=== PATIENT | female | born 1955 | race Caucasian/White ===

== ENCOUNTER 2019-10-07 09:20 | Emergency (ER) | payer OTHER ==
--- NOTE | 2019-10-07 10:17 | ER ---
Nurse's Notes [facility] Name: Olga Yang Age: 63 yrs Sex: Female : 1955 Arrival Date: 10/07/2019 Time: 09:23 Bed 8 Private MD: Diagnosis: Allergic contact dermatitis due to plants, except food Presentation: 10/07 09:34 Transition of care: patient was not received from another setting of care. Risk tw2 Assessment: Do you want to hurt yourself or someone else? Patient reports no desire to harm self or others. Initial Sepsis Screen: Does the patient meet any 2 criteria? No. Patient's initial sepsis screen is negative. Does the patient have a suspected source of infection? No. Patient's initial sepsis screen is negative. Care prior to arrival: None. 09:34 Method Of Arrival: Ambulatory tw2 09:34 Presenting complaint: Patient states: "I got poison jessenia in my eyes yesterday". Pt c/o aa5 itching and irritation to eyes. 09:34 Onset of symptoms was September 2019. aa5 09:34 Acuity: ADOLFO 4 aa5 Triage Assessment: 10:00 General: Appears uncomfortable, Behavior is calm, cooperative. Pain: Denies pain. EENT: vc Eyes are tearing on right inner canthus and left inner canthus Lid(s) are swollen surrounding bilateral eyes.. Reports blurred vision in bilateral eyes. since yesterday. Patient states she has poison jessenia in her eyes from cutting up a tree yesterday.. Neuro: Level of Consciousness is awake, alert, obeys commands, Oriented to person, place, time. Cardiovascular: Denies shortness of breath. Respiratory: Airway is patent Respiratory effort is even, unlabored. GI: No signs and/or symptoms were reported involving the gastrointestinal system. : No deficits noted. Derm: Rash noted that is itchy, red, raised, on surrounding bilateral eyes. Musculoskeletal: Range of motion: intact in all extremities. Historical: - Allergies: 09:39 No Known Allergies; aa5 - Home Meds: 09:39 None [Active]; aa5 - PMHx: 09:39 Hypertension; aa5 - PSHx: 09:39 Hysterectomy; Lymph node removed; Hernia repair; Tonsillectomy; aa5 - Immunization history:: Flu vaccine is not up to date. - Social history:: Smoking status: Patient/guardian denies using tobacco. - Ebola Screening: : Patient denies travel to an Ebola-affected area in the 21 days before illness onset. Screenin:33 Abuse screen: Denies threats or abuse. Nutritional screening: No deficits noted. tw2 Tuberculosis screening: No symptoms or risk factors identified. Fall Risk None identified. Assessment: 10:11 General: Appears uncomfortable. Pain: Denies pain. Neuro: Level of Consciousness is vc awake, alert, obeys commands, Oriented to person, place, time. Cardiovascular: Capillary refill < 3 seconds Patient's skin is warm and dry. Respiratory: Airway is patent Respiratory effort is even, unlabored, Denies shortness of breath. GI: No deficits noted. : No signs and/or symptoms were reported regarding the genitourinary system. EENT: Eyes are tearing on left inner canthus and right inner canthus Lid(s) are swollen around bilateral eyes.. Reports blurred vision Denies pain. Derm: Skin is intact, is healthy with good turgor, Skin is Rash noted that is itchy, surrounding both eyes. Musculoskeletal: Capillary refill < 3 seconds, Range of motion: intact in all extremities. 10:20 Reassessment: Patient is alert, oriented x 3, equal unlabored respirations, skin ph warm/dry/pink. Patient denies pain at this time. Patient states symptoms have not improved. Vital Signs: 09:34 BP 172 / 74; Pulse 52; Resp 17; Pulse Ox 100% on R/A; tw2 09:34 Weight 72.57 kg (R); Height 5 ft. 1 in. (154.94 cm) (R); Pain 0/10; aa5 10:24 BP 164 / 73; Pulse 54; Resp 17; Pulse Ox 97% on R/A; tw2 09:34 Body Mass Index 30.23 (72.57 kg, 154.94 cm) aa5 ED Course: 09:23 Patient arrived in ED. rg4 09:33 Dayan Griffith, TENZIN is Primary Nurse. tw2 09:34 Arm band placed on. tw2 09:34 Bed in low position. Call light in reach. tw2 09:38 Triage completed. aa5 09:40 Roszak, Paulino, PA is PHCP. jr8 09:40 Gil Veliz MD is Attending Physician. jr8 09:42 Sonali Amaya, RN is Primary Nurse. vc 10:28 No provider procedures requiring assistance completed. Patient did not have IV access ph during this emergency room visit. Administered Medications: 10:20 Drug: SOLU-Medrol 125 mg Route: IM; Site: left vastus lateralis; ph 10:30 Follow up: Response: No adverse reaction ph Outcome: 10:15 Discharge ordered by . jr8 10:28 Discharged to home ambulatory. ph 10:28 Condition: good 10:28 Discharge instructions given to patient, Instructed on discharge instructions, follow up and referral plans. medication usage, Demonstrated understanding of instructions, follow-up care, medications, Prescriptions given X 1. 10:31 Patient left the ED. ph Signatures: Francesca Serrano RN RN aa5 Paulino Osorio PA PA jr8 Ophelia Redd RN RN Dayan Griffith RN RN 2 Raysa Paredes 4 Sonali Amaya, TENZIN RN vc Corrections: (The following items were deleted from the chart) : 09:33 Social history: Smoking status: 2 aa5 09:40 09:33 Immunization history: Adult Immunizations [facility] aa5
--- NOTE | 2019-10-07 10:17 | EDPHYS ---
Physician Documentation [facility] Name: Olga Yang Age: 63 yrs Sex: Female : 1955 Arrival Date: 10/07/2019 Time: 09:23 Bed 8 Private MD: ED Physician Gil Veliz HPI: 10/07 10:12 This 63 yrs old Female presents to ER via Ambulatory with complaints of Eye jr8 Swelling. 10:12 Onset: The symptoms/episode began/occurred acutely, yesterday. Duration: the symptoms jr8 are continuous. Aggravated by nothing. Alleviated by nothing. Associated signs and symptoms: Pertinent positives: None. Patient does not utilize any form of vision correction. Severity of symptoms: At their worst the symptoms were mild in the emergency department the symptoms are unchanged. The patient has not experienced similar symptoms in the past. The patient has not recently seen a physician. Patient stated that she was doing yard work and was getting rid of poison sophie. Stated that she took proper precautions but now has rash around both eyes with itching. Rash also to both wrists . Historical: - Allergies: 09:39 No Known Allergies; aa5 - Home Meds: 09:39 None [Active]; aa5 - PMHx: 09:39 Hypertension; aa5 - PSHx: 09:39 Hysterectomy; Lymph node removed; Hernia repair; Tonsillectomy; aa5 - Immunization history:: Flu vaccine is not up to date. - Social history:: Smoking status: Patient/guardian denies using tobacco. - Ebola Screening: : Patient denies travel to an Ebola-affected area in the 21 days before illness onset. ROS: 10:12 Constitutional: Negative for fever, chills, and weight loss. jr8 10:12 Skin: Positive for rash. 10:12 All other systems are negative. Exam: 10:12 Visual Acuity: Visual acuity is within normal limits. jr8 10:12 Eyes: Pupils equal round and reactive to light, extra-ocular motions intact. Lids and lashes normal. Conjunctiva and sclera are non-icteric and not injected. Cornea within normal limits. Periorbital areas with no swelling, redness, or edema. ENT: Nares patent. No nasal discharge, no septal abnormalities noted. Tympanic membranes are normal and external auditory canals are clear. Oropharynx with no redness, swelling, or masses, exudates, or evidence of obstruction, uvula midline. Mucous membranes moist. Neck: Trachea midline, no thyromegaly or masses palpated, and no cervical lymphadenopathy. Supple, full range of motion without nuchal rigidity, or vertebral point tenderness. No Meningismus. Cardiovascular: Regular rate and rhythm with a normal S1 and S2. No gallops, murmurs, or rubs. Normal PMI, no JVD. No pulse deficits. Respiratory: Lungs have equal breath sounds bilaterally, clear to auscultation and percussion. No rales, rhonchi or wheezes noted. No increased work of breathing, no retractions or nasal flaring. Abdomen/GI: Soft, non-tender, with normal bowel sounds. No distension or tympany. No guarding or rebound. No evidence of tenderness throughout. Back: No spinal tenderness. No costovertebral tenderness. Full range of motion. MS/ Extremity: Pulses equal, no cyanosis. Neurovascular intact. Full, normal range of motion. Neuro: Awake and alert, GCS 15, oriented to person, place, time, and situation. Cranial nerves II-XII grossly intact. Motor strength 5/5 in all extremities. Sensory grossly intact. Cerebellar exam normal. Normal gait. 10:12 Skin: mild erythema and swelling around the periorbital areas without scleral or conjunctival infiltration. Same mild rash noted to wrists bilaterally. No other lesions or acute findings noted . Vital Signs: 09:34 BP 172 / 74; Pulse 52; Resp 17; Pulse Ox 100% on R/A; tw2 09:34 Weight 72.57 kg (R); Height 5 ft. 1 in. (154.94 cm) (R); Pain 0/10; aa5 10:24 BP 164 / 73; Pulse 54; Resp 17; Pulse Ox 97% on R/A; tw2 09:34 Body Mass Index 30.23 (72.57 kg, 154.94 cm) aa5 MDM: 09:41 Patient medically screened. jr8 10:12 Data reviewed: vital signs, nurses notes, and as a result, I will discharge patient. jr8 Data interpreted: Pulse oximetry: on room air is 100 %. Interpretation: normal. Counseling: I had a detailed discussion with the patient and/or guardian regarding: the historical points, exam findings, and any diagnostic results supporting the discharge/admit diagnosis, the need for outpatient follow up, a family practitioner, to return to the emergency department if symptoms worsen or persist or if there are any questions or concerns that arise at home. Administered Medications: 10:20 Drug: SOLU-Medrol 125 mg Route: IM; Site: left vastus lateralis; ph 10:30 Follow up: Response: No adverse reaction ph Disposition: 11:43 Co-signature as Attending Physician, Gil Veliz MD I agree with the assessment and kdr plan of care. Disposition: 10/07/19 10:15 Discharged to Home. Impression: Allergic contact dermatitis due to plants, except food. - Condition is Stable. - Discharge Instructions: Poison Sophie Dermatitis. - Prescriptions for Prednisone 20 mg Oral Tablet - take 2 tablets by ORAL route once daily for 5 days then one tab once dialy for 3 days; 13 tablet. - Medication Reconciliation Form, Thank You Letter, Antibiotic Education, Prescription Opioid Use form. - Follow up: Private Physician; When: 5 - 6 days; Reason: Recheck today's complaints, Continuance of care, Re-evaluation by your physician. - Problem is new. - Symptoms have improved. Signatures: Gil Veliz MD MD [facility] Francesca Serrano RN RN aa5 Paulino Osorio PA PA jr8 Ophelia Redd RN RN Dayan Griffith RN RN tw2 Corrections: (The following items were deleted from the chart) 09:40 09:33 Social history: Smoking status: [facility] 09:40 09:33 Immunization history: Adult Immunizations [facility] aa5 10:31 10:15 10/07/2019 10:15 Discharged to Home. Impression: Allergic contact dermatitis due ph to plants, except food. Condition is Stable. Forms are Medication Reconciliation Form, Thank You Letter, Antibiotic Education, Prescription Opioid Use. Follow up: Private Physician; When: 5 - 6 days; Reason: Recheck today's complaints, Continuance of care, Re-evaluation by your physician. Problem is new. Symptoms have improved. jr8
[2019-10-07] MEDS ORDERED: METHYLPREDNISOLONE 125 MG INJ ONE (10:22)
[2019-10-07 10:37] VITALS: BP 164/73; O2SAT 97
== END 2019-10-07 10:31 | disposition home or self-care (01) ==
LOC: ER 09:20
DX: L23.7 Allergic contact dermatitis due to plants, except food (principal)
CPT/HCPCS: 96372; 99283; J2930

== ENCOUNTER 2020-09-06 13:31 | Emergency (ER) | payer OTHER ==
--- OUTSIDE RECORDS SUMMARY | 2020-09-06 13:32 | XMS REPORT | Continuity of Care Document ---
:1955 Author Organization [facility] t Address [address] [place] [address] Care Team Providers Name Role Phone Unavailable Unavailable Unavailable Problems This patient has no known problems. Allergies, Adverse Reactions, Alerts This patient has no known allergies or adverse reactions. Medications This patient has no known medications. Procedures This patient has no known procedures. Results This patient has no known results.
[2020-09-06 14:19] LABS: Absolute Lymphocytes (CBC) 1.4 K/uL (0.7-4.9); Basophils % 1.2 % (0-1.3); Hematocrit 22.2 % (36.0-45.0); Lymphocytes % 15.3 % (15.3-44.8); MPV 9.4 fL (7.6-11.3); RBC Red Blood Cell Count 2.52 M/uL (3.86-4.86)
[2020-09-06 14:22] LABS: Protime INR 0.89
[2020-09-06] MEDS ORDERED: ONDANSETRON 4 MG/2 ML VIAL ONE (14:33)
[2020-09-06 14:35] LABS: ALT/SGPT 17 U/L (12-78); AST/SGOT 12 U/L (15-37); Albumin 3.1 g/dL (3.4-5.0); Alkaline Phosphatase 97 U/L (45-117); BUN Blood Urea Nitrogen 11 mg/dL (7-18); Bicarbonate 25 mmol/L (21-32); Bilirubin Direct 0.1 mg/dL (0-0.2); Bilirubin Total 0.2 mg/dL (0.2-1.0); Ferritin 10.5 ng/mL (8-388); Glucose Level 96 mg/dL (74-106); Magnesium 2.3 mg/dL (1.8-2.4); NT PRO-BNP 57 pg/mL (<125); Potassium 3.6 mmol/L (3.5-5.1); Protein, Total 6.8 g/dL (6.4-8.2); Sodium Level 141 mmol/L (136-145); Transferrin 355 mg/dL (200-360); Troponin (Emerg Dept Use Only) < 0.02 ng/mL (0.0-0.045)
--- NOTE | 2020-09-06 15:09 | RAD REPORT ---
EXAM DESCRIPTION: RAD - Chest Single View - 09/06/2020 2:27 pm CLINICAL HISTORY: SOB Chest pain. COMPARISON: No comparisons FINDINGS: Portable technique limits examination quality. The lungs are grossly clear. The heart is normal in size. No displaced fractures.Probable significant hiatal hernia.
[2020-09-06] MEDS ORDERED: NA CHLORIDE 0.9% 100 ML IV ONE (17:27)
[2020-09-06] MEDS ORDERED: HYDROCORTISONE SUC 100 MG INJ ONE (18:14)
[2020-09-06] MEDS ORDERED: ACETAMINOPHEN 325 MG TABLET ONE (18:14)
[2020-09-06] MEDS ORDERED: DIPHENHYDRAMINE 50 MG/ML VIAL ONE (18:14)
--- NOTE | 2020-09-06 22:42 | EDPHYS ---
Physician Documentation [facility] Name: Olga Yang Age: 64 yrs Sex: Female : 1955 Arrival Date: 09/06/2020 Time: 13:31 Bed 23 Private MD: ED Physician Gerson Gonzalez HPI: 09/06 14:02 This 64 yrs old Female presents to ER via Wheelchair with complaints of pm1 Weakness, Shortness Of Breath, Chest Pain. 14:02 The patient presents to the emergency department with weakness of the entire body, pm1 generalized weakness. Onset: The symptoms/episode began/occurred 3 day(s) ago. Context: Possible due to her anemia. Similar to prior iron deficiency anemia in the past. She used to receive iron infusion treatments when she lived in [place]. Associated signs and symptoms: Pertinent positives: Chest pain, SOB, Pertinent negatives: fever, cough. Severity of symptoms: in the emergency department the symptoms are worse. The patient has experienced similar episodes in the past, a few times. The patient has not recently seen a physician, and does not have an established primary care provider. Historical: - Allergies: 13:38 No Known Allergies; ca1 - Home Meds: 13:38 Iron CR Oral [Active]; ca1 - PMHx: 13:38 Hypertension; ca1 - Immunization history:: Adult Immunizations up to date. - Social history:: Smoking status: Patient reports the use of cigarette tobacco products, denies chronic smoking, but will smoke occasionally, Patient uses alcohol, occasionally. ROS: 14:02 Constitutional: Negative for fever, chills, and weight loss. pm1 14:02 Abdomen/GI: Negative for abdominal pain, nausea, vomiting, diarrhea, and constipation, Back: Negative for injury and pain, MS/Extremity: Negative for injury and deformity, Skin: Negative for injury, rash, and discoloration, Neuro: Negative for headache, numbness, tingling, and seizure, Positive for generalized weakness 14:02 Cardiovascular: Positive for chest pain, Negative for edema, orthopnea, palpitations. 14:02 Respiratory: Positive for cough, shortness of breath, Negative for sputum production, wheezing. Exam: 14:02 Constitutional: This is a well developed, well nourished patient who is awake, alert, pm1 and in no acute distress. Head/Face: Normocephalic, atraumatic. Neck: Trachea midline, no thyromegaly or masses palpated, and no cervical lymphadenopathy. Supple, full range of motion without nuchal rigidity, or vertebral point tenderness. No Meningismus. Chest/axilla: Normal chest wall appearance and motion. Nontender with no deformity. No lesions are appreciated. 14:02 Back: No spinal tenderness. No costovertebral tenderness. Full range of motion. Skin: Warm, dry with normal turgor. Normal color with no rashes, no lesions, and no evidence of cellulitis. MS/ Extremity: Pulses equal, no cyanosis. Neurovascular intact. Full, normal range of motion. 14:02 Cardiovascular: Exam negative for acute changes, Rate: normal, Rhythm: regular, Pulses: no pulse deficits are appreciated. 14:02 Respiratory: Exam negative for acute changes, respiratory distress, shortness of breath. 14:02 Abdomen/GI: Exam negative for acute changes, Inspection: abdomen appears normal, Palpation: abdomen is soft and non-tender. 14:02 Neuro: Exam negative for acute changes, Orientation: is normal, Mentation: is normal, Motor: is normal, moves all fours. Vital Signs: 13:39 BP 137 / 61; Pulse 70; Resp 16; Temp 97.1; Pulse Ox 100% ; ca1 14:34 BP 116 / 51; Pulse 64; Resp 17 S; Pulse Ox 100% on R/A; jd3 16:37 BP 128 / 68; Pulse 66; Resp 16 S; Pulse Ox 97% on R/A; jd3 18:12 BP 140 / 61; Pulse 76; Resp 18 S; Pulse Ox 98% on R/A; jd3 19:14 BP 123 / 55; Pulse 68; Resp 17 S; Pulse Ox 99% on R/A; jd3 21:47 BP 122 / 60; Pulse 71; Resp 17 S; Temp 97.3(TE); Pulse Ox 98% on R/A; jd3 22:26 BP 125 / 58; Pulse 65; Resp 16 S; Temp 98.0(TE); Pulse Ox 100% on R/A; jd3 23:19 BP 118 / 60; Pulse 61; Resp 17 S; Pulse Ox 98% on R/A; jd3 09/07 01:35 BP 127 / 61; Pulse 77; Resp 16 S; Temp 98.2(TE); Pulse Ox 98% ; bb MDM: 09/06 13:44 Patient medically screened. pm1 15:35 Counseling: I had a detailed discussion with the patient and/or guardian regarding: the pm1 historical points, exam findings, and any diagnostic results supporting the discharge/admit diagnosis, lab results, radiology results, The need for blood transfusion and admission to hospital due to symptomatic anemia. The patient does not want to stay in the hospital. She just wants a blood transfusion. Therefore will transfuse blood. 20:13 ED course: Patient feeling a lot better after infusion of 1 unit of blood. She does not pm1 want to stay in the hospital still. Will give the patient the second unit of blood and discharge her. Discussed the need to follow up with hematology for continued management of anemia. 20:44 Data reviewed: vital signs. Data interpreted: Pulse oximetry: on room air is 99 %. pm1 Interpretation: normal. 22:38 ED course: Patient's symptoms that she presented with have completely resolved and she pm1 feels ready to go home. She understands hospital policy for repeat H\T\H two hours after infusion. Pending discharge after results. 09/06 13:53 Order name: Basic Metabolic Panel pm1 09/06 13:53 Order name: CBC with Diff pm1 09/06 13:53 Order name: LFT's pm09/06 13:53 Order name: Magnesium pm09/06 13:53 Order name: NT PRO-BNP pm09/06 13:53 Order name: PT-INR pm09/06 13:53 Order name: Troponin (emerg Dept Use Only) pm1 09/06 13:53 Order name: Ferritin pm09/06 13:53 Order name: TIBC pm09/06 13:53 Order name: Iron Level pm09/06 14:23 Order name: CBC with Automated Diff; Complete Time: 14:25 EDMS 09/06 14:23 Order name: Protime (+INR); Complete Time: 14:25 EDMS 09/06 14:36 Order name: Basic Metabolic Panel; Complete Time: 15:26 EDMS 09/06 14:36 Order name: Liver (Hepatic) Function; Complete Time: 15:26 EDMS 09/06 13:53 Order name: XRAY Chest (1 view) pm1 09/06 14:36 Order name: Troponin (Emerg Dept Use Only); Complete Time: 15:26 EDMS 09/06 14:36 Order name: NT PRO-BNP; Complete Time: 15:26 EDMS 09/06 14:36 Order name: Magnesium; Complete Time: 15:26 EDMS 09/06 14:36 Order name: Transferrin Sat/Iron Binding; Complete Time: 15:26 EDMS 09/06 14:36 Order name: Ferritin; Complete Time: 15:26 EDMS 09/06 15:11 Order name: RAD; Complete Time: 15:26 EDMS 09/06 15:34 Order name: Type And Screen pm1 09/06 15:49 Order name: Bb Add On bd 09/06 16:57 Order name: Packed RBC Leukored EDMS 09/06 17:38 Order name: ABO/RH no charge; Complete Time: 18:27 EDMS 09/07 00:25 Order name: Hemoglobin ar5 09/07 00:25 Order name: Hematocrit ar5 09/06 13:53 Order name: EKG; Complete Time: 13:54 pm1 09/06 13:53 Order name: Cardiac monitoring; Complete Time: 14:20 pm1 09/06 13:53 Order name: EKG - Nurse/Tech; Complete Time: 14:20 pm1 09/06 13:53 Order name: IV Saline Lock; Complete Time: 14:13 pm1 09/06 13:53 Order name: Labs collected and sent; Complete Time: 14:13 pm1 09/06 13:53 Order name: O2 Per Protocol; Complete Time: 14:01 pm1 09/06 13:53 Order name: O2 Sat Monitoring; Complete Time: 14:01 pm1 09/06 15:34 Order name: Transfuse; Complete Time: 18:38 pm1 Administered Medications: 14:33 Drug: Zofran (Ondansetron) 4 mg Route: IVP; Site: right antecubital; jd3 15:30 Follow up: Response: No adverse reaction jd3 18:11 Drug: Tylenol 650 mg Route: PO; jd3 19:00 Follow up: Response: No adverse reaction jd3 18:11 Drug: Benadryl 12.5 mg Route: IVP; Site: left antecubital; jd3 19:00 Follow up: Response: No adverse reaction jd3 18:11 Drug: Solu-CORTEF 50 mg Route: IVP; Site: left antecubital; jd3 19:00 Follow up: Response: No adverse reaction jd3 Disposition: 09/07 11:56 Co-signature as Attending Physician, Gerson Gonzalez MD I agree with the assessment and [facility] plan of care. Disposition: 09/06/20 22:41 Discharged to Home. Impression: Anemia, unspecified. - Condition is Stable. - Discharge Instructions: Anemia, Nonspecific, Blood Transfusion, Adult. - Medication Reconciliation Form, Thank You Letter, Antibiotic Education, Prescription Opioid Use form. - Follow up: Emergency Department; When: As needed; Reason: Worsening of condition. Follow up: Private Physician; When: 2 - 3 days; Reason: Recheck today's complaints, Continuance of care, Re-evaluation by your physician. Follow up: [facility]; When: 2 - 3 days; Reason: Recheck today's complaints, Continuance of care, Re-evaluation by your physician. - Problem is new. - Symptoms have improved. Signatures: Dispatcher [employer] EDMS Gerson Gonzalez MD MD cha Ballard, Brenda RN TENZIN bb Mahesh Small, COMMUNITY SERVICE AIDE COMMUNITY SERVICE AIDE pm1 Babatunde Melgar RN RN jd3 Acob, Cheryl RN TENZIN ca1 Corrections: (The following items were deleted from the chart) 09/06 20:43 14:02 Abdomen/GI: Negative for abdominal pain, nausea, vomiting, diarrhea, and pm1 constipation, Back: Negative for injury and pain, MS/Extremity: Negative for injury and deformity, Skin: Negative for injury, rash, and discoloration, Neuro: Negative for headache, weakness, numbness, tingling, and seizure, pm1 09/07 01:44 09/06 22:41 09/06/2020 22:41 Discharged to Home. Impression: Anemia, unspecified. bb Condition is Stable. Discharge Instructions: Anemia, Nonspecific, Blood Transfusion, Adult. Forms are Medication Reconciliation Form, Thank You Letter, Antibiotic Education, Prescription Opioid Use. Follow up: Emergency Department; When: As needed; Reason: Worsening of condition. Follow up: Private Physician; When: 2 - 3 days; Reason: Recheck today's complaints, Continuance of care, Re-evaluation by your physician. Follow up: Di Powell; When: 2 - 3 days; Reason: Recheck today's complaints, Continuance of care, Re-evaluation by your physician. Problem is new. Symptoms have improved. pm1
--- NOTE | 2020-09-06 22:42 | ER ---
Nurse's Notes [facility] Name: Olga Yang Age: 64 yrs Sex: Female : 1955 Arrival Date: 09/06/2020 Time: 13:31 Bed 23 [facility] MD: Diagnosis: Anemia, unspecified Presentation: 09/06 13:39 Chief complaint: Patient states: GENERALIZED WEAKNESS, NAUSEA, SOB x3 DAYS, STATES ca1 ORTHOSTATIC VERTIGO. Coronavirus screen: At this time, the client does not indicate any symptoms associated with coronavirus-19. Ebola Screen: No symptoms or risks identified at this time. No acute neurological deficit is noted. Initial Sepsis Screen: Does the patient meet any 2 criteria? No. Patient's initial sepsis screen is negative. Does the patient have a suspected source of infection? No. Patient's initial sepsis screen is negative. Risk Assessment: Do you want to hurt yourself or someone else? Patient reports no desire to harm self or others. Note STATES SAME S/S WITH PREVIOUS ANEMIA. Onset of symptoms is unknown. 13:39 Method Of Arrival: Wheelchair ca1 13:39 Acuity: ADOLFO 3 ca1 Historical: - Allergies: 13:38 No Known Allergies; ca1 - Home Meds: 13:38 Iron CR Oral [Active]; ca1 - PMHx: 13:38 Hypertension; ca1 - Immunization history:: Adult Immunizations up to date. - Social history:: Smoking status: Patient reports the use of cigarette tobacco products, denies chronic smoking, but will smoke occasionally, Patient uses alcohol, occasionally. Screenin:00 Abuse screen: Denies threats or abuse. Nutritional screening: No deficits noted. jd3 Tuberculosis screening: No symptoms or risk factors identified. Fall Risk IV access (20 points). Ambulatory Aid- None/Bed Rest/Nurse Assist (0 pts). Gait- Weak (10 pts.). Mental Status- Oriented to own ability (0 pts). Total Moura Fall Scale indicates Low Risk Score (25-44 pts). Fall prevention measures have been instituted. Side Rails Up X 2 Placed close to Nursing Station Frequent Obs/Assesments occuring. Assessment: 14:00 General: Appears in no apparent distress. uncomfortable, Behavior is calm, cooperative, jd3 appropriate for age, Reports fatigue for 2-3 days. Pain: Denies pain. Neuro: Level of Consciousness is awake, alert, obeys commands, Oriented to person, place, time, situation, Reports generalized weakness. Cardiovascular: Denies chest pain, Capillary refill < 3 seconds Patient's skin is warm and dry. Rhythm is regular. Respiratory: Airway is patent Respiratory effort is even, unlabored, Respiratory pattern is regular, symmetrical, Denies cough, shortness of breath. GI: Abdomen is round non-distended, Abd is soft and non tender X 4 quads. Reports nausea. : No signs and/or symptoms were reported regarding the genitourinary system. EENT: No signs and/or symptoms were reported regarding the EENT system. Derm: Skin is intact, Skin is dry, Skin is normal, Skin temperature is warm. Musculoskeletal: Circulation, motion, and sensation intact. Range of motion: intact in all extremities. 15:00 Reassessment: Patient appears in no apparent distress at this time. No changes from jd3 previously documented assessment. Patient and/or family updated on plan of care and expected duration. Pain level reassessed. Patient is alert, oriented x 3, equal unlabored respirations, skin warm/dry/pink. 16:37 Reassessment: Patient appears in no apparent distress at this time. Patient and/or jd3 family updated on plan of care and expected duration. Pain level reassessed. Patient is alert, oriented x 3, equal unlabored respirations, skin warm/dry/pink. awaiting blood transfusion Patient states feeling better. 18:12 Reassessment: Patient appears in no apparent distress at this time. No changes from jd3 previously documented assessment. Patient and/or family updated on plan of care and expected duration. Pain level reassessed. Patient is alert, oriented x 3, equal unlabored respirations, skin warm/dry/pink. 18:20 Reassessment: transfusion started. jd3 19:13 Reassessment: Patient appears in no apparent distress at this time. Patient and/or jd3 family updated on plan of care and expected duration. Pain level reassessed. Patient is alert, oriented x 3, equal unlabored respirations, skin warm/dry/pink. transfusion ongoing. 20:30 Reassessment: Patient appears in no apparent distress at this time. No changes from jd3 previously documented assessment. Patient and/or family updated on plan of care and expected duration. Pain level reassessed. Patient is alert, oriented x 3, equal unlabored respirations, skin warm/dry/pink. 21:46 Reassessment: Patient appears in no apparent distress at this time. Patient and/or jd3 family updated on plan of care and expected duration. Pain level reassessed. Patient is alert, oriented x 3, equal unlabored respirations, skin warm/dry/pink. awaiting second transfusion to finish prior to disposition. Patient states feeling better. 22:26 Reassessment: Patient appears in no apparent distress at this time. Patient and/or jd3 family updated on plan of care and expected duration. Pain level reassessed. Patient is alert, oriented x 3, equal unlabored respirations, skin warm/dry/pink. transfusion complete, awaiting 2 hr post lab draw for disposition. Patient states feeling better. Patient states symptoms have improved. 23:20 Reassessment: Patient appears in no apparent distress at this time. Patient and/or jd3 family updated on plan of care and expected duration. Pain level reassessed. Patient is alert, oriented x 3, equal unlabored respirations, skin warm/dry/pink. pt reports feeling less fatigue. even and steady gait to restroom and back to bed without any signs of fatigue. awaiting 2 hr post blood transfusion lab draw before discharge. Patient states feeling better. Patient states symptoms have improved. 09/07 01:43 Reassessment: Patient is alert, oriented x 3, equal unlabored respirations, skin bb warm/dry/pink. pt states she is feeling much better, verbalized understanding of and agrees to plan of care discharge instructions given pt awaiting arrival of family for transportation home. Vital Signs: 09/06 13:39 BP 137 / 61; Pulse 70; Resp 16; Temp 97.1; Pulse Ox 100% ; ca1 14:34 BP 116 / 51; Pulse 64; Resp 17 S; Pulse Ox 100% on R/A; jd3 16:37 BP 128 / 68; Pulse 66; Resp 16 S; Pulse Ox 97% on R/A; jd3 18:12 BP 140 / 61; Pulse 76; Resp 18 S; Pulse Ox 98% on R/A; jd3 19:14 BP 123 / 55; Pulse 68; Resp 17 S; Pulse Ox 99% on R/A; jd3 21:47 BP 122 / 60; Pulse 71; Resp 17 S; Temp 97.3(TE); Pulse Ox 98% on R/A; jd3 22:26 BP 125 / 58; Pulse 65; Resp 16 S; Temp 98.0(TE); Pulse Ox 100% on R/A; jd3 23:19 BP 118 / 60; Pulse 61; Resp 17 S; Pulse Ox 98% on R/A; jd3 09/07 01:35 BP 127 / 61; Pulse 77; Resp 16 S; Temp 98.2(TE); Pulse Ox 98% ; bb ED Course: 09/06 13:31 Patient arrived in ED. ds1 13:39 Arm band placed on. ca1 13:41 Triage completed. ca1 13:43 Mahesh Small, SARI is PHCP. pm1 13:43 Gesron Gonzalez MD is Attending Physician. pm1 14:01 Babatunde Melgar RN is Primary Nurse. jd3 14:13 Inserted saline lock: 20 gauge in right antecubital area, using aseptic technique. jd3 Blood collected. 15:01 Patient has correct armband on for positive identification. Bed in low position. Call jd3 light in reach. Side rails up X2. fisher terrapin on. Pulse ox on. NIBP on. 16:01 Type And Screen Sent. jd3 22:41 Di Schwartz MD is Referral Physician. pm1 09/07 00:07 Report given to Kala DAVE. jd3 01:44 No provider procedures requiring assistance completed. IV discontinued, intact, bb bleeding controlled, No redness/swelling at site. Pressure dressing applied. Administered Medications: 09/06 14:33 Drug: Zofran (Ondansetron) 4 mg Route: IVP; Site: right antecubital; jd3 15:30 Follow up: Response: No adverse reaction jd3 18:11 Drug: Tylenol 650 mg Route: PO; jd3 19:00 Follow up: Response: No adverse reaction jd3 18:11 Drug: Benadryl 12.5 mg Route: IVP; Site: left antecubital; jd3 19:00 Follow up: Response: No adverse reaction jd3 18:11 Drug: Solu-CORTEF 50 mg Route: IVP; Site: left antecubital; jd3 19:00 Follow up: Response: No adverse reaction jd3 Outcome: 22:41 Discharge ordered by . pm1 09/07 01:44 Discharged to home via wheelchair, with family. bb Condition: stable Discharge instructions given to patient, Instructed on discharge instructions, follow up and referral plans. Demonstrated understanding of instructions, follow-up care. 01:44 Patient left the ED. bb Signatures: Rosalva Mejia ds1 Kala Dhaliwal RN RN bb Mahesh Small, WAREHOUSE PERSON WAREHOUSE PERSON pm1 Babatunde Melgar RN RN jKeila Rivera RN RN ca1 Corrections: (The following items were deleted from the chart) 09/06 15:00 14:00 Reassessment: Patient appears in no apparent distress at this time. No changes jd3 from previously documented assessment. Patient and/or family updated on plan of care and expected duration. Pain level reassessed. Patient is alert, oriented x 3, equal unlabored respirations, skin warm/dry/pink. jd3 18:13 18:12 Pulse 76bpm; Resp 18bpm; Spontaneous; Pulse Ox 98% RA; jd3 jd3 23:21 23:20 Reassessment: Patient appears in no apparent distress at this time. Patient jd3 and/or family updated on plan of care and expected duration. Pain level reassessed. Patient is alert, oriented x 3, equal unlabored respirations, skin warm/dry/pink. pt reports feeling less fatigue. even and steady gait to restroom and back to bed without any signs of fatigue. Patient states feeling better. Patient states symptoms have improved. jd3 23:23 23:22 Response: No adverse reaction jd3 jd3
[2020-09-07 02:40] VITALS: TEMP 98
[2020-09-07 02:41] VITALS: BP 118/60; O2SAT 98
== END 2020-09-07 01:44 | disposition home or self-care (01) ==
LOC: ER 13:31
PROC: 30233N1 Transfusion of Nonautologous Red Blood Cells into Peripheral Vein, Percutaneous Approach (ICD-10-PCS; principal; 2020-09-07)
DX: D64.9 Anemia, unspecified (principal); I10 Essential (primary) hypertension; F17.210 Nicotine dependence, cigarettes, uncomplicated
CPT/HCPCS: 93005; 85025; 80048; 36415; 86900; 83735; 86850; 85610; 86901; 80076; 85018; 85014; 84484; 82728; 83540; 83880; 84466; 71045; 99284; 36430; J1200; P9016 ×2; J1720; J2405

== ENCOUNTER 2020-10-21 16:25 | Observation (INO) | payer OTHER ==
--- OUTSIDE RECORDS SUMMARY | 2020-10-21 16:28 | XMS REPORT | Continuity of Care Document ---
:1955 Author Organization [facility] t Address [address] [place] [address] Dr. Parikh. [address] [place] [id number] Care Team Providers Name Role Phone Unavailable Unavailable Unavailable Problems This patient has no known problems. Allergies, Adverse Reactions, Alerts This patient has no known allergies or adverse reactions. Medications This patient has no known medications. Procedures This patient has no known procedures. Results This patient has no known results.
[2020-10-21 18:33] LABS: Absolute Lymphocytes (CBC) 1.1 K/uL (0.7-4.9); Basophils % 1.6 % (0-1.3); Lymphocytes % 15.5 % (15.3-44.8); MPV 9.1 fL (7.6-11.3); RBC Red Blood Cell Count 3.03 M/uL (3.86-4.86)
[2020-10-21 18:35] LABS: Protime INR 0.94
[2020-10-21 18:50] LABS: BUN Blood Urea Nitrogen 16 mg/dL (7-18); Bicarbonate 26 mmol/L (21-32); Glucose Level 101 mg/dL (74-106); Magnesium 2.4 mg/dL (1.8-2.4); NT PRO-BNP 55 pg/mL (<125); Potassium 3.9 mmol/L (3.5-5.1); Sodium Level 141 mmol/L (136-145); Troponin (Emerg Dept Use Only) < 0.02 ng/mL (0.0-0.045)
--- NOTE | 2020-10-21 18:52 | EDPHYS ---
Physician Documentation [facility] Name: Olga Yang Age: 64 yrs Sex: Female : 1955 Arrival Date: 10/21/2020 Time: 16:28 Bed 6 Private MD: ED Physician Gil Veliz HPI: 10/21 18:12 This 64 yrs old Female presents to ER via Wheelchair with complaints of kdr Dizziness, Ear Pain, Irregular Pulse. 18:12 The patient has been generally weak and SOB with any exertion for the last few weeks. kdr She has a history of anemia for unknown cause. Was seen here in August for similalr s/s and needed a trans fusion at that time for anemia - no cause was reported by the patient. Onset: The symptoms/episode began/occurred gradually, 2 week(s) ago. Severity of symptoms: At their worst the symptoms were mild moderate just prior to arrival, in the emergency department the symptoms are unchanged. The patient has experienced similar episodes in the past, a few times. The patient has not recently seen a physician. The patient was also c/o of pain in the right ear that has been there since August and is unchanged - waxes and wanes. Historical: - Allergies: 16:47 No Known Allergies; em - PMHx: 16:47 Hypertension; Anemia; em - PSHx: 16:47 Hysterectomy; em - Immunization history:: Adult Immunizations up to date. - Social history:: Smoking status: Patient denies any tobacco usage or history of. ROS: 18:52 Constitutional: Negative for fever, chills, and weight loss, Eyes: Negative for injury, kdr pain, redness, and discharge, ENT: Negative for injury, pain, and discharge, Neck: Negative for injury, pain, and swelling, Cardiovascular: Negative for chest pain, palpitations, and edema, Abdomen/GI: Negative for abdominal pain, nausea, vomiting, diarrhea, and constipation, Back: Negative for injury and pain, : Negative for injury, bleeding, discharge, and swelling, MS/Extremity: Negative for injury and deformity, Skin: Negative for injury, rash, and discoloration, Psych: Negative for depression, anxiety, suicide ideation, homicidal ideation, and hallucinations, Allergy/Immunology: Negative for hives, rash, and allergies, Endocrine: Negative for neck swelling, polydipsia, polyuria, polyphagia, and marked weight changes, Hematologic/Lymphatic: Negative for swollen nodes, abnormal bleeding, and unusual bruising. 18:52 Respiratory: Positive for dyspnea on exertion, shortness of breath, Negative for hemoptysis, orthopnea, pleurisy, wheezing. 18:52 Neuro: Positive for weakness, Negative for altered mental status, dizziness, gait disturbance, headache, hearing loss, loss of consciousness, seizure activity, speech changes, syncope. Exam: 18:52 Constitutional: This is a well developed, well nourished patient who is awake, alert, kdr and in no acute distress. Head/Face: Normocephalic, atraumatic. Eyes: Pupils equal round and reactive to light, extra-ocular motions intact. Lids and lashes normal. Conjunctiva and sclera are non-icteric and not injected. Cornea within normal limits. Periorbital areas with no swelling, redness, or edema. Neck: Trachea midline, no thyromegaly or masses palpated, and no cervical lymphadenopathy. Supple, full range of motion without nuchal rigidity, or vertebral point tenderness. No Meningismus. Chest/axilla: Normal chest wall appearance and motion. Nontender with no deformity. No lesions are appreciated. Cardiovascular: Regular rate and rhythm with a normal S1 and S2. No gallops, murmurs, or rubs. Normal PMI, no JVD. No pulse deficits. Respiratory: Lungs have equal breath sounds bilaterally, clear to auscultation and percussion. No rales, rhonchi or wheezes noted. No increased work of breathing, no retractions or nasal flaring. Abdomen/GI: Soft, non-tender, with normal bowel sounds. No distension or tympany. No guarding or rebound. No evidence of tenderness throughout. Back: No spinal tenderness. No costovertebral tenderness. Full range of motion. Skin: Warm, dry with normal turgor. Normal color with no rashes, no lesions, and no evidence of cellulitis. MS/ Extremity: Pulses equal, no cyanosis. Neurovascular intact. Full, normal range of motion. Neuro: Awake and alert, GCS 15, oriented to person, place, time, and situation. Cranial nerves II-XII grossly intact. Motor strength 5/5 in all extremities. Sensory grossly intact. Cerebellar exam normal. Normal gait. Psych: Awake, alert, with orientation to person, place and time. Behavior, mood, and affect are within normal limits. 18:52 Abdomen/GI: Rectal exam: the exam is deferred, The patient is taking an Iron supplement. 19:24 ECG was reviewed by the Attending Physician. kdr Vital Signs: 16:42 BP 127 / 67; Pulse 77; Resp 18; Temp 97.8; Pulse Ox 100% on R/A; Weight 68.04 kg; em Height 5 ft. 1 in. (154.94 cm); Pain 0/10; 18:15 BP 140 / 64; Pulse 66; Resp 16; Pulse Ox 100% ; sv 18:46 BP 136 / 56; Pulse 66; Resp 16; Pulse Ox 100% ; sv 19:35 BP 128 / 66; Pulse 71; Resp 18; Temp 99.5(O); Pulse Ox 100% on R/A; lp1 20:45 BP 135 / 69; Pulse 68; Resp 18; Pulse Ox 98% on R/A; lp1 21:30 BP 132 / 58; Pulse 72; Resp 18; Pulse Ox 97% on R/A; lp1 16:42 Body Mass Index 28.34 (68.04 kg, 154.94 cm) em MDM: 18:52 Patient medically screened. kdr 18:54 Data reviewed: vital signs, nurses notes, lab test result(s), radiologic studies. kdr Counseling: I had a detailed discussion with the patient and/or guardian regarding: the historical points, exam findings, and any diagnostic results supporting the discharge/admit diagnosis, lab results, radiology results, the need for outpatient follow up. 10/21 17:59 Order name: Basic Metabolic Panel kdr 10/21 17:59 Order name: CBC with Diff kdr 10/21 17:59 Order name: Magnesium kdr 10/21 17:59 Order name: NT PRO-BNP kdr 10/21 17:59 Order name: PT-INR; Complete Time: 19:12 kdr 10/21 17:59 Order name: Troponin (emerg Dept Use Only); Complete Time: 19:12 kdr 10/21 17:59 Order name: Type And Screen kdr 10/21 17:59 Order name: Basic Metabolic Panel; Complete Time: 19:12 EDMS 10/21 17:59 Order name: CBC with Automated Diff; Complete Time: 23:18 EDMS 10/21 17:59 Order name: Magnesium; Complete Time: 19:12 [facility] 10/21 17:59 Order name: NT PRO-BNP; Complete Time: 19:12 [facility] 10/21 20:06 Order name: Antibody Identification [facility] 10/21 21:14 Order name: CBC Smear Scan; Complete Time: 23:18 [facility] 10/21 21:18 Order name: COVID-19 lp1 10/21 17:59 Order name: XRAY Chest (1 view); Complete Time: 23:18 [facility] 10/21 17:59 Order name: EKG; Complete Time: 18:00 kdr 10/21 17:59 Order name: Cardiac monitoring; Complete Time: 18:28 kdr 10/21 17:59 Order name: EKG - Nurse/Tech; Complete Time: 18:50 [facility] 10/21 17:59 Order name: IV Saline Lock; Complete Time: 18:27 kdr 10/21 17:59 Order name: Labs collected and sent; Complete Time: 18:27 [facility] 10/21 17:59 Order name: O2 Per Protocol; Complete Time: 18:27 [facility] 10/21 17:59 Order name: O2 Sat Monitoring; Complete Time: 18:27 [facility] 10/21 21:39 Order name: CORONAVIRUS [facility] 10/21 21:57 Order name: Transferrin Sat/Iron Binding; Complete Time: 23:18 [facility] 10/21 21:57 Order name: Ferritin; Complete Time: 23:18 [facility] 10/22 06:15 Order name: Comprehensive Metabolic Panel; Complete Time: 19:39 [facility] 10/22 06:15 Order name: Magnesium; Complete Time: 19:39 [facility] 10/22 07:07 Order name: C-Reactive Protein; Complete Time: 19:39 [facility] 10/22 20:39 Order name: Hemoglobin [facility] 10/22 20:39 Order name: Hematocrit EDMS EC:24 Rate is 64 beats/min. Rhythm is regular, Normal Sinus Rhythm with No ectopy. QRS Bryan kdr is Normal. IA interval is normal. QRS interval is normal. QT interval is normal. Clinical impression: Normal ECG. Administered Medications: No medications were administered Disposition: 10/21/20 18:52 Hospitalization ordered by Sherman Jones for Observation. Preliminary diagnosis are Anemia, unspecified, Weakness, Shortness of breath. - Bed requested for [facility] ER HOLD. - Status is Observation. lp1 - Condition is Fair. - Problem is an acute exacerbation. - Symptoms are unchanged. Signatures: Dispatcher [employer] Wanda Kowalski, RN TENZIN Kathleen Gutierrez RN TENZIN dm5 Gil Veliz MD MD [facility] Ben Olivera, TENZIN DAVE em Sapna Betancourt RN RN lp1 Destiny, Jorge Luis, SURVEY SUPERINTENDENT-C SURVEY SUPERINTENDENT-Cla1 Corrections: (The following items were deleted from the chart) 21:40 18:52 Hospitalization Ordered by Sherman Jones MD for Observation. Preliminary kl diagnosis is Anemia, unspecified; Weakness; Shortness of breath. Bed requested for Telemetry/MedSurg (observation). Status is Observation. Condition is Fair. Problem is an acute exacerbation. Symptoms are unchanged. kdr 22:13 21:40 10/21/2020 18:52 Hospitalization Ordered by Sherman Jones MD for Observation. lp1 Preliminary diagnosis is Anemia, unspecified; Weakness; Shortness of breath. Bed requested for Telemetry/MedSurg (observation). Status is Observation. Condition is Fair. Problem is an acute exacerbation. Symptoms are unchanged. kl 22:43 22:13 10/21/2020 18:52 Hospitalization Ordered by Sherman Jones MD for Observation. dm5 Preliminary diagnosis is Anemia, unspecified; Weakness; Shortness of breath. Bed requested for Telemetry/MedSurg (observation). Status is Observation. Condition is Fair. Problem is an acute exacerbation. Symptoms are unchanged. lp1 10/22 21:47 10/21 22:43 10/21/2020 18:52 Hospitalization Ordered by Sherman Jones MD for lp1 Observation. Preliminary diagnosis is Anemia, unspecified; Weakness; Shortness of breath. Bed requested for [facility] ER HOLD. Status is Observation. Condition is Fair. Problem is an acute exacerbation. Symptoms are unchanged. dm5
--- NOTE | 2020-10-21 18:52 | ER ---
Nurse's Notes [facility] Name: Olga Yang Age: 64 yrs Sex: Female : 1955 Arrival Date: 10/21/2020 Time: 16:28 Bed 6 Private MD: Diagnosis: Anemia, unspecified;Weakness;Shortness of breath Presentation: 10/21 16:42 Chief complaint: Patient states: dizziness and feels heart beating fast for about 1 em month, was here on 09/08/20 and was admitted for low HGB and was given 2 units of blood, unknown source of where she is bleeding from, denies rectal bleeding or vomiting blood, denies fever, also reports right ear pain since last seen in the ED. Coronavirus screen: Client denies travel out of the [place] in the last 14 days. Ebola Screen: Patient negative for fever greater than or equal to 101.5 degrees Fahrenheit, and additional compatible Ebola Virus Disease symptoms Patient denies exposure to infectious person. Patient denies travel to an Ebola-affected area in the 21 days before illness onset. No symptoms or risks identified at this time. Initial Sepsis Screen: Does the patient meet any 2 criteria? No. Patient's initial sepsis screen is negative. Does the patient have a suspected source of infection? No. Patient's initial sepsis screen is negative. Risk Assessment: Do you want to hurt yourself or someone else? Patient reports no desire to harm self or others. Onset of symptoms was September 2020. 16:42 Method Of Arrival: Wheelchair em 16:42 Acuity: ADOLFO 3 em Historical: - Allergies: 16:47 No Known Allergies; em - PMHx: 16:47 Hypertension; Anemia; em - PSHx: 16:47 Hysterectomy; em - Immunization history:: Adult Immunizations up to date. - Social history:: Smoking status: Patient denies any tobacco usage or history of. Screenin:10 Abuse screen: Denies threats or abuse. Denies injuries from another. Nutritional sv screening: No deficits noted. Tuberculosis screening: No symptoms or risk factors identified. Fall Risk None identified. Assessment: 18:15 General: Appears in no apparent distress. comfortable, well developed, Behavior is sv calm, cooperative, appropriate for age. Pain: Complains of pain in right ear Pain currently is 1 out of 10 on a pain scale. Neuro: Level of Consciousness is awake, alert, obeys commands, Oriented to person, place, time, situation, Moves all extremities. Full function Speech is normal, Reports dizziness, when standing up. Cardiovascular: Reports irregular pulse. Respiratory: Airway is patent Respiratory effort is even, unlabored, Respiratory pattern is regular, symmetrical. GI: Reports black stools but is taking daily iron. EENT: Reports pain in right ear. Derm: Skin is normal. Musculoskeletal: Range of motion: intact in all extremities. 18:33 Reassessment: Patient appears in no apparent distress at this time. No changes from sv previously documented assessment. Patient and/or family updated on plan of care and expected duration. Pain level reassessed. Patient is alert, oriented x 3, equal unlabored respirations, skin warm/dry/pink. 19:35 Reassessment: Jorge Luis Dixon CASH MANAGEMENT CLERK at bedside to discuss plan of care with patient. lp1 19:52 Reassessment: Assisted patient to bathroom via WC, dizziness noted upon standing. lp1 General: Appears in no apparent distress. Pain: Denies pain. Neuro: Level of Consciousness is awake, alert, obeys commands, Oriented to person, place, time, situation, Reports dizziness, upon standing. Cardiovascular: Patient's skin is warm and dry. Respiratory: Respiratory effort is even, unlabored. GI: Abdomen is non-distended. Derm: Skin is intact, Skin is dry, Skin is normal. Musculoskeletal: No deficits noted. 21:00 Reassessment: Patient appears in no apparent distress at this time. No changes from lp1 previously documented assessment. Patient aware of pending admission. Vital Signs: 16:42 BP 127 / 67; Pulse 77; Resp 18; Temp 97.8; Pulse Ox 100% on R/A; Weight 68.04 kg; em Height 5 ft. 1 in. (154.94 cm); Pain 0/10; 18:15 BP 140 / 64; Pulse 66; Resp 16; Pulse Ox 100% ; sv 18:46 BP 136 / 56; Pulse 66; Resp 16; Pulse Ox 100% ; sv 19:35 BP 128 / 66; Pulse 71; Resp 18; Temp 99.5(O); Pulse Ox 100% on R/A; lp1 20:45 BP 135 / 69; Pulse 68; Resp 18; Pulse Ox 98% on R/A; lp1 21:30 BP 132 / 58; Pulse 72; Resp 18; Pulse Ox 97% on R/A; lp1 16:42 Body Mass Index 28.34 (68.04 kg, 154.94 cm) em ED Course: 16:28 Patient arrived in ED. ag5 16:46 Triage completed. em 16:47 Arm band placed on. em 17:56 Gil Veliz MD is Attending Physician. kdr 17:59 Deneen Richards, RN is Primary Nurse. sv 18:10 Patient has correct armband on for positive identification. Bed in low position. Call sv light in reach. Pulse ox on. NIBP on. Door closed. Warm blanket given. Head of bed elevated. 18:10 Missed attempt(s): 20 gauge in left antecubital area. Bleeding controlled, band aid sv applied, catheter tip intact. 18:15 T\T\S collected, blood band applied to patient. Inserted saline lock: 20 gauge in left sv upper arm, using aseptic technique. Blood collected. Flushed right with 2 ml normal saline. 18:27 X-ray(s) taken. sv 18:27 Basic Metabolic Panel Sent. sv 18:27 CBC with Diff Sent. sv 18:27 Magnesium Sent. sv 18:27 NT PRO-BNP Sent. sv 18:27 XRAY Chest (1 view) Sent. sv 18:33 EKG done, by ED staff, reviewed by Gil Veliz MD. sv 18:34 XRAY Chest (1 view) In Process Unspecified. EDMS 18:51 Sherman Jones MD is Hospitalizing Provider. kdr 19:06 Primary Nurse role handed off by Deneen Richards, TENIZN sv 19:06 Report given to Sapna DAVE and Vega DAVE. sv 19:31 Sapna Betancourt, RN is Primary Nurse. lp1 19:43 No provider procedures requiring assistance completed. Patient admitted, IV remains in lp1 place. Administered Medications: No medications were administered Outcome: 18:52 Decision to Hospitalize by Provider. kdr 19:43 Condition: stable lp1 19:43 Instructed on the need for admit. 21:56 Admitted to Med/surg accompanied by tech, room 205, with chart, Report called to lp1 TENZIN Reddy 22:13 Patient left the ED. lp1 10/22 21:47 Patient left the ED. lp1 Signatures: Dispatcher [employer] Deneen Ziegler RN RN sv Gil Veliz MD MD kdr Munoz, Edgar, RN RN em Pena, Laura, RN RN lp1 Olegario Pool ag5 Corrections: (The following items were deleted from the chart) 10/21 18:50 18:44 Reassessment: Patient appears in no apparent distress at this time. No changes sv from previously documented assessment. Patient and/or family updated on plan of care and expected duration. Pain level reassessed. Patient is alert, oriented x 3, equal unlabored respirations, skin warm/dry/pink. sv
[2020-10-21] MEDS ORDERED: ACETAMINOPHEN 500 MG TAB PO PRN (20:53)
[2020-10-21] MEDS ORDERED: ONDANSETRON 4 MG/2 ML VIAL IV PRN (20:53)
[2020-10-21] MEDS ORDERED: ACETAMINOPHEN 500 MG TAB PO ONE (20:53)
[2020-10-21] MEDS ORDERED: SODIUM CHLORIDE 0.9% 10ML INJ IV PRN (20:53)
[2020-10-21] MEDS ORDERED: DIPHENHYDRAMINE 50 MG/ML VIAL IV ONE (20:53)
[2020-10-21] MEDS ORDERED: NA CHLORIDE 0.9% 250 ML IV SCH (21:00)
[2020-10-21] MEDS: PANTOPRAZOLE 40 MG INJ IVP SCH ×2 (21:00→22:25)
--- NOTE | 2020-10-21 21:02 | RAD REPORT ---
EXAM DESCRIPTION: RAD - Chest Single View - 10/21/2020 6:34 pm CLINICAL HISTORY: Dizzy, tachycardia COMPARISON: Portable September 06 TECHNIQUE: AP portable chest image was obtained 10/21/2020 6:34 pm . FINDINGS: Lungs are clear. Heart and vasculature are normal. No measurable pleural effusion and no p neumothorax. Focal midline mass density lower chest is believed be a moderately large hiatal hernia. Calcified granulomatous type calcifications seen in the left hilum left-side upper mediastinum. No ac tonia bony abnormality seen. No acute aortic findings suspected. IMPRESSION: No acute cardiopulmonary process. No significant change from comparison study.
[2020-10-21 21:13] LABS: Anisocytosis 2+; Blood Morphology Comment NOTED (NOT SEEN); Platelet Estimate ADEQ; White Blood Cell Scan OK (OK)
[2020-10-21 21:14] LABS: Hypochromasia 1+; Polychromasia 1+
[2020-10-21 21:57] LABS: Ferritin 3.1 ng/mL (8-388)
[2020-10-21 22:19] VITALS: BMI 28.5
--- NOTE | 2020-10-21 23:06 | P.HP ---
Certification for Inpatient Patient admitted to: Observation With expected LOS: <2 Midnights Patient will require the following post-hospital care: None Practitioner: I am a practitioner with admitting privileges, knowledge of patient current condition, hospital course, and medical plan of care. Services: Services provided to patient in accordance with Admission requirements found in Title 42 Section 412.3 of the Code of Federal Regulations <DestinyJorge Luis - Last Filed: 10/21/20 23:00> Patient History Date of Service: 10/21/20 Reason for admission: Symptomatic anemia History of Present Illness: 64-year-old female with history of iron-deficiency anemia presents emergency department for shortness of breath and weakness. Patient reports that she has been having dark stools for approximately 1 year but she has also intermittently been taking iron. Patient reports that she had multiple colonoscopies and 1 endoscopy not any in the past year or 2. No area of bleeding was ever identified. Patient recently came to the ER on 09/07/2020 and was given 1 unit packed red blood cells in discharge from the emergency department. At that time hemoglobin was 7.1. On evaluation today in the emergency department patient's hemoglobin is 6.6. Patient denies any bright red blood per rectum or coffee-ground emesis/hemaemesis. Patient does report dark stools but again she states that has been going on for over a year. Patient's vital signs stable, not in any distress at this time. Discussed at length with patient, not likely in need of acute intervention or assessment by gastroenterology, patient amendable with observation admission and transfusion of 2 units packed red blood cells in addition to initiation of PPI. Iron studies will also be ordered. - Past Medical/Surgical History Has patient received pneumonia vaccine in the past: Yes Diabetic: No -: Anemia -: HTN -: Vertigo -: IBS -: hysterectomy -: Tubal ligation -: Hernia repair Psychosocial/ Personal History: Patient currently lives at home with her family - Family History Family History: Reviewed- Non-Contributory - Social History Smoking Status: Never smoker Alcohol use: No CD- Drugs: No Caffeine use: Yes Place of Residence: Home <Jorge Luis Dixon - Last Filed: 10/21/20 23:00> Date of Service: 10/21/20 <Sherman Jones - Last Filed: 10/26/20 14:05> Allergies No Known Allergies Allergy (Verified 10/21/20 22:22) Home Medications: Iron,Carbonyl/Ascorbic Acid [Vitron-C Tablet] 1 tab PO DAILY 10/21/20 Ciprofloxacin /Dexameth Otic [Ciprodex Otic Suspension] 2 drops OT BID 10 Days #1 btl 10/22/20 Iron/FA/Vit B-Com W/C [Hemocyte Plus*] 1 tab PO DAILY WITH BREAKFAST #30 tab 10/22/20 Pantoprazole [Protonix Tab] 40 mg PO DAILY #30 tab 10/22/20 Review of Systems General: Weakness Respiratory: Shortness of Breath <Jorge Luis Dixon - Last Filed: 10/21/20 23:00> Physical Examination - Vital Signs Temperature: 97.0 F Blood Pressure: 140/63 Pulse: 69 Respirations: 18 Pulse Ox (%): 99 - Physical Exam General: Alert, In no apparent distress, Oriented x3 HEENT: Atraumatic, Normocephalic, PERRLA, Other (Mucous membranes dry and pale) Neck: Supple Respiratory: Clear to auscultation bilaterally, Normal air movement Cardiovascular: No edema, Normal S1 S2 Capillary refill: <2 Seconds Gastrointestinal: Normal bowel sounds, No tenderness, No masses, No rebound Musculoskeletal: No contractures, No erythema, No tenderness Integumentary: No significant lesion, No tenderness/swelling, No erythema Neurological: Normal speech, Normal strength at 5/5 x4 extr, Normal tone, Sensation intact - Studies Laboratory Data (last 24 hrs) 10/21/20 18:15: PT 11.1, INR 0.94 10/21/20 18:15: WBC 7.2, Hgb 6.6 L*, Hct 22.0 L, Plt Count 394 10/21/20 18:15: Sodium 141, Potassium 3.9, BUN 16, Creatinine 0.72, Glucose 101, Magnesium 2.4 <Jorge Luis Dixon - Last Filed: 10/21/20 23:00> Assessment and Plan - Plan Assessment Iron-deficiency anemia Plan Iron-deficiency anemia-iron studies obtained prior to transfusion showed iron level 25, TIBC 475, transferrin 339, transferrin percent saturation 5.3, ferritin level 3.1, MCV 72.8 AMC H C. 29.9, rdw 19.9. Blood transfusion ordered, due to patient's chronically dark stool suspect likely slow upper GI bleed. Will also initiate therapy with PPI Protonix while in the hospital. No gastroenterology on-call currently but patient does not appear to require acute intervention or assessment at this time. Discussed this at length with patient who states she will be able to follow up on an outpatient basis if she can have blood transfusion. Patient deferred attempt to transfer to tertiary center for further evaluation. Will transfuse 2 units packed red blood cells and obtain TR post hemoglobin/hematocrit. Will reinitiate therapy with PPI and daily iron supplementation. DVT prophylaxis with SCDs. Discharge Plan: Home Plan to discharge in: 24 Hours - Advance Directives Does patient have a Living Will: Yes Does patient have a Durable POA for Healthcare: No - Code Status/Comfort Care Code Status Assessed: Yes (Full code) Critical Care: No Time Spent Managing Pts Care (In Minutes): 55 <Jorge Luis Dixon - Last Filed: 10/21/20 23:00> - Plan Plan of care reviewed. Agree with plan of care as outlined above by Jorge Luis Dixon. Significant iron deficiency anemia. Pt has been taking OTC iron supplementation for a short period, stopped for several months. Transfuse 2 uPRBC, if post H/H good, can dc home, will need f/u with GI and PCP. Would benefit from IV iron infusions Pt also noted to be COVID-19 positive, however reports asymptomatic, breathing comfortably on RA. Also states she doesn't believe she has COVID-19 and that we are lying to her. <Sherman Jones - Last Filed: 10/26/20 14:05>
[2020-10-22 06:15] LABS: ALT/SGPT 17 U/L (12-78); AST/SGOT 12 U/L (15-37); Alkaline Phosphatase 75 U/L (45-117); BUN Blood Urea Nitrogen 16 mg/dL (7-18); Bicarbonate 26 mmol/L (21-32); Bilirubin Total 0.3 mg/dL (0.2-1.0); Glucose Level 96 mg/dL (74-106); Magnesium 2.3 mg/dL (1.8-2.4); Potassium 3.9 mmol/L (3.5-5.1); Protein, Total 5.7 g/dL (6.4-8.2); Sodium Level 141 mmol/L (136-145)
[2020-10-22] MEDS ORDERED: FE SULF/FA/VIT B COMP & C TAB PO SCH (08:00)
[2020-10-22] MEDS ORDERED: POTASSIUM 25 MEQ EFFERV TAB PO ONE (08:00)
[2020-10-22] MEDS ORDERED: POTASSIUM 25 MEQ EFFERV TAB ONE (08:29)
[2020-10-22] MEDS ORDERED: PANTOPRAZOLE 40 MG INJ ONE ×2 (08:29→19:41)
[2020-10-22] MEDS: PANTOPRAZOLE 40 MG INJ IVP SCH ×2 (09:00→20:28)
[2020-10-22] MEDS ORDERED: NA CHLORIDE 0.9% 250 ML ONE ×2 (11:01→15:29)
--- NOTE | 2020-10-22 16:47 | P.PN ---
Subjective Date of Service: 10/22/20 Chief Complaint: Symptomatic anemia Subjective: Improving (Patient has received 1 unit of blood, feeling better, appetite is returning, feels was strength is improving, but has not been out of bed yet. She is she is to receive her 2nd unit soon) Review of Systems 10-point ROS is otherwise unremarkable Physical Examination - Vital Signs Temperature: 98.2 F Blood Pressure: 111/61 Pulse: 71 Respirations: 15 Pulse Ox (%): 100 - Physical Exam General: Alert, In no apparent distress, Oriented x3 HEENT: Sclerae nonicteric Neck: Supple Respiratory: Other (Nonlabored respirations on room air) Cardiovascular: No edema, Regular rate/rhythm Gastrointestinal: Soft and benign, No tenderness Musculoskeletal: No tenderness Integumentary: No rashes Neurological: Normal speech, Normal affect - Studies Laboratory Data (last 24 hrs) 10/21/20 18:15: PT 11.1, INR 0.94 10/21/20 18:15: WBC 7.2, Hgb 6.6 L*, Hct 22.0 L, Plt Count 394 10/21/20 18:15: Sodium 141, Potassium 3.9, BUN 16, Creatinine 0.72, Glucose 101, Magnesium 2.4 Assessment & Plan Physician Review Additional Text: Iron-deficiency anemia -iron studies confirm significant iron deficiency -receiving 2 units of PRBCs -possible slow upper GI bleed, patient with chronic dark stools, but has been taking iron -continue PPI treatment -know what GI on-call, patient does not appear to be acutely losing a significant amount of blood -she will need to follow up with her PCP and GI for further blood transfusions/iron transfusions, and upper endoscopy -if symptoms improve post transfusion, and hemoglobin improves as well, patient can likely be discharged home later this evening Time Spent Managing Pts Care (In Minutes): 35
--- NOTE | 2020-10-22 18:40 | P.DS ---
Admission Date: 10/21/20 Discharge Date: 10/22/20 Disposition: ROUTINE DISCHARGE Reason for Admission: Symptomatic anemia Consultations: none Procedures: CXR FINDINGS: Lungs are clear. Heart and vasculature are normal. No measurable pleural effusion and no pneumothorax. Focal midline mass density lower chest is believed be a moderately large hiatal hernia. Calcified granulomatous type calcifications seen in the left hilum left-side upper mediastinum. No acute bony abnormality seen. No acute aortic findings suspected. IMPRESSION: No acute cardiopulmonary process. No significant change from comparison study. Medical problem list Symptomatic iron-deficiency anemia Right otitis externa Brief History of Present Illness: 64-year-old female with history of iron-deficiency anemia presents emergency department for shortness of breath and weakness. Patient reports that she has been having dark stools for approximately 1 year but she has also intermittently been taking iron. Patient reports that she had multiple colonoscopies and 1 endoscopy not any in the past year or 2. No area of bleeding was ever identified. Patient recently came to the ER on 09/07/2020 and was given 1 unit packed red blood cells in discharge from the emergency department. At that time hemoglobin was 7.1. On evaluation today in the emergency department patient's hemoglobin is 6.6. Patient denies any bright red blood per rectum or coffee-ground emesis/hemaemesis. Patient does report dark stools but again she states that has been going on for over a year. Patient's vital signs stable, not in any distress at this time. Discussed at length with patient, not likely in need of acute intervention or assessment by gastroenterology, patient amendable with observation admission and transfusion of 2 units packed red blood cells in addition to initiation of PPI. Iron studies will also be ordered. Hospital Course: Patient was admitted for symptomatic anemia color reports dark stools chronically over the course of the last 1 year. Patient was previously transfused approximately 1.5 months ago for hemoglobin of 7.1. Initial hemoglobin during his visit was 6.6. Iron studies indicate iron-deficiency anemia iron level 25 TIBC 475 transferrin 339 transferrin percent saturation 5.3 ferritin 3.1. Coags within normal limits. Patient does not appear to be losing a significant amount of blood acutely. RDW 19.9, appears more slow/chronic in nature. Patient was transfused 2 units packed red blood cells and achieve significant clinical improvement with decreasing shortness of breath, increasing appetite, improved skin and mucous membrane color. Gastroenterology not currently on-call at this facility, this was explained to the patient, recommend continuation of PPI and iron therapy at home with followup with gastroenterology for likely upper endoscopy. Patient also reported right ear pain, on exam patient has pain with manipulation of the pinna is swollen ear canal, suspected otitis externa. Will prescribe patient antibiotic eardrops in addition to the PPI and iron tablets. Patient given strict return precautions for signs of upper GI bleeding including coffee-ground emesis or red blood in the vomit or stool. Patient amenable with this plan of care. Patient also tested positive for COVID-19 she was unable to identify a time when she has had any symptoms, patient's room air saturations 100%, no respiratory symptoms at this time. Will recommend self quarantine for 10 days and return precautions for shortness of breath. Patient amendable with this plan. Vital Signs/Physical Exam: Temp Pulse Resp BP Pulse Ox 98.2 F 71 15 111/61 100 10/22/20 16:50 10/22/20 16:50 10/22/20 16:50 10/22/20 16:50 10/22/20 16:50 General: Alert, In no apparent distress, Oriented x3 HEENT: Atraumatic, Normocephalic, PERRLA, Mucous membr. moist/pink Neck: Supple, 2+ carotid pulse no bruit Respiratory: Clear to auscultation bilaterally, Normal air movement Cardiovascular: No edema, Regular rate/rhythm, Normal S1 S2 Capillary refill: <2 Seconds Gastrointestinal: Normal bowel sounds, Soft and benign, No ascites, No tenderness, No masses, No rebound Musculoskeletal: No contractures, No erythema, No tenderness Integumentary: No significant lesion, No tenderness/swelling, No erythema Neurological: Normal gait, Normal speech, Normal strength at 5/5 x4 extr, Normal tone Laboratory Data at Discharge: WBC 7.2 K/uL (4.3-10.9) 10/21/20 18:15 Hgb 6.6 g/dL (12.0-15.0) L* 10/21/20 18:15 Hct 22.0 % (36.0-45.0) L 10/21/20 18:15 Plt Count 394 K/uL (152-406) 10/21/20 18:15 PT 11.1 SECONDS (9.5-12.5) 10/21/20 18:15 INR 0.94 10/21/20 18:15 Sodium 141 mmol/L (136-145) 10/22/20 05:09 Potassium 3.9 mmol/L (3.5-5.1) 10/22/20 05:09 BUN 16 mg/dL (7-18) 10/22/20 05:09 Creatinine 0.62 mg/dL (0.55-1.3) 10/22/20 05:09 Glucose 96 mg/dL (74-106) 10/22/20 05:09 Magnesium 2.3 mg/dL (1.8-2.4) 10/22/20 05:09 Total Bilirubin 0.3 mg/dL (0.2-1.0) 10/22/20 05:09 AST 12 U/L (15-37) L 10/22/20 05:09 ALT 17 U/L (12-78) 10/22/20 05:09 Alkaline Phosphatase 75 U/L (45-117) 10/22/20 05:09 Home Medications: Iron,Carbonyl/Ascorbic Acid [Vitron-C Tablet] 1 tab PO DAILY 10/21/20 Ciprofloxacin /Dexameth Otic [Ciprodex Otic Suspension] 2 drops OT BID 10 Days #1 btl 10/22/20 Iron/FA/Vit B-Com W/C [Hemocyte Plus*] 1 tab PO DAILY WITH BREAKFAST #30 tab 10/22/20 Pantoprazole [Protonix Tab] 40 mg PO DAILY #30 tab 10/22/20 New Medications: Ciprofloxacin /Dexameth Otic [Ciprodex Otic Suspension] 2 drops OT BID 10 Days #1 btl Iron/FA/Vit B-Com W/C [Hemocyte Plus*] 1 tab PO DAILY WITH BREAKFAST #30 tab Pantoprazole [Protonix Tab] 40 mg PO DAILY #30 tab Patient Discharge Instructions: 1. Please follow up with her primary care provider in 1-2 weeks to follow up his hospitalization. 2. Please follow up with Gastroenterology in 1-2 weeks to follow this hospitalization. 3. Patient was admitted for symptomatic anemia color reports dark stools chronically over the course of the last 1 year. Patient was previously transfused approximately 1.5 months ago for hemoglobin of 7.1. Initial hemoglobin during his visit was 6.6. Iron studies indicate iron-deficiency anemia iron level 25 TIBC 475 transferrin 339 transferrin percent saturation 5.3 ferritin 3.1. Coags within normal limits. Patient does not appear to be losing a significant amount of blood acutely. RDW 19.9, appears more slow/chronic in nature. Patient was transfused 2 units packed red blood cells and achieve significant clinical improvement with decreasing shortness of breath, increasing appetite, improved skin and mucous membrane color. Gastroenterology not currently on-call at this facility, this was explained to the patient, recommend continuation of PPI and iron therapy at home with followup with gastroenterology for likely upper endoscopy. Patient also reported right ear pain, on exam patient has pain with manipulation of the pinna is swollen ear canal, suspected otitis externa. Will prescribe patient antibiotic eardrops in addition to the PPI and iron tablets. Patient given strict return precautions for signs of upper GI bleeding including coffee-ground emesis or red blood in the vomit or stool. Patient amenable with this plan of care. Patient also tested positive for COVID-19 she was unable to identify a time when she has had any symptoms, patient's room air saturations 100%, no respiratory symptoms at this time. Will recommend self quarantine for 10 days and return precautions for shortness of breath. Patient amendable with this plan. Diet: Regular Activity: Ad aurelia Followup: NONE,NONE [Primary Care Provider] - Time spent managing pt's care (in minutes): 55
[2020-10-22 20:31] LABS: Hematocrit 29.2 % (36.0-45.0)
[2020-10-22 21:15] VITALS: BP 142/64; TEMP 99.2; O2SAT 98
== END 2020-10-22 21:30 | disposition home or self-care (01) ==
LOC: ER 16:25 → ERHOLD 20:18 → 2ND 21:55 → ERHOLD 23:13
PROVIDERS: ADMIT Hospitalist; ATTEND Hospitalist
DX: D50.9 Iron deficiency anemia, unspecified (principal); U07.1 COVID-19; H60.91 Unspecified otitis externa, right ear; I10 Essential (primary) hypertension; K58.9 Irritable bowel syndrome, unspecified
CPT/HCPCS: 93005; 85025; 80048; 36415; 86900; 83735 ×2; 86850; 85610; 86870; 86901; 85018; 85014; 84484; 82728; 83540; 80053; 86922 ×2; 83880; 84466; 86140; 71045; 99285; U0003; C9113 ×3; P9016 ×2; J7050 ×2; 36430

== ENCOUNTER 2020-12-18 14:12 | Emergency (ER) | payer OTHER ==
--- OUTSIDE RECORDS SUMMARY | 2020-12-18 14:14 | XMS REPORT | Continuity of Care Document ---
:1955 Author Organization [facility] t Address [address] [place] [address] Care Team Providers Name Role Phone Unavailable Unavailable Unavailable Problems This patient has no known problems. Allergies, Adverse Reactions, Alerts This patient has no known allergies or adverse reactions. Medications This patient has no known medications. Procedures This patient has no known procedures. Results This patient has no known results.
[2020-12-18 15:27] LABS: Absolute Lymphocytes (CBC) 1.1 K/uL (0.7-4.9); Basophils % 2.2 % (0-1.3); Hematocrit 37.3 % (36.0-45.0); Lymphocytes % 22.7 % (15.3-44.8); MPV 9.2 fL (7.6-11.3); RBC Red Blood Cell Count 4.48 M/uL (3.86-4.86)
[2020-12-18 15:28] LABS: Protime INR 0.91
[2020-12-18 15:47] LABS: ALT/SGPT 16 U/L (12-78); AST/SGOT 14 U/L (15-37); Albumin 3.5 g/dL (3.4-5.0); Alkaline Phosphatase 87 U/L (45-117); BUN Blood Urea Nitrogen 15 mg/dL (7-18); Bicarbonate 23 mmol/L (21-32); Bilirubin Direct < 0.1 mg/dL (0-0.2); Bilirubin Total 0.2 mg/dL (0.2-1.0); Glucose Level 102 mg/dL (74-106); Magnesium 2.1 mg/dL (1.8-2.4); NT PRO-BNP 40 pg/mL (<125); Potassium 3.5 mmol/L (3.5-5.1); Protein, Total 6.5 g/dL (6.4-8.2); Sodium Level 144 mmol/L (136-145); Troponin (Emerg Dept Use Only) < 0.02 ng/mL (0.0-0.045)
--- NOTE | 2020-12-18 15:48 | RAD REPORT ---
EXAM DESCRIPTION: RAD - Chest Single View - 12/18/2020 3:42 pm CLINICAL HISTORY: shortess of breath Chest pain. COMPARISON: Chest Single View dated 10/21/2020; Chest Single View dated 09/06/2020 FINDINGS: Portable technique limits examination quality. The lungs are grossly clear. The heart is normal in size. No displaced fractures.Moderate hiatal paola ia. IMPRESSION: No acute intrathoracic process suspected.
[2020-12-18 16:43] LABS: SARS-COV-2 RT PCR NEGATIVE (NEGATIVE)
--- NOTE | 2020-12-18 17:13 | RAD REPORT ---
EXAM DESCRIPTION: CT - Head Brain Wo Cont - 12/18/2020 5:03 pm CLINICAL HISTORY: DIZZINESS Headache, drowsiness COMPARISON: Head angio dated 12/18/2020 TECHNIQUE: All CT scans are performed using dose optimization technique as appropriate and may inclu de automated exposure control or mA/KV adjustment according to patient size. FINDINGS: No intracranial hemorrhage, hydrocephalus or extra-axial fluid collection.No areas of brai n edema or evidence of midline shift. The paranasal sinuses and mastoids are clear. The calvarium is intact. IMPRESSION: No acute intracranial abnormality.
--- NOTE | 2020-12-18 17:14 | RAD REPORT ---
EXAM DESCRIPTION: CT - Head angio - 12/18/2020 5:04 pm CLINICAL HISTORY: DIZZINESS Headache, drowsiness COMPARISON: No comparisons TECHNIQUE: CT angiography of the head was performed with MIPs. All CT scans are performed using dose optimization technique as appropriate and may include automated exposure control or mA/KV adjustment according to patient size. FINDINGS: No evidence of aneurysm is detected. No flow-limiting stenosis or vascular malformation id entified. Antegrade flow is seen in the vertebral arteries. The vertebral arteries are codominant. The visualized dural venous sinuses are patent. IMPRESSION: No significant flow abnormality is detected.
--- NOTE | 2020-12-18 17:16 | RAD REPORT ---
EXAM DESCRIPTION: CT - Neck Angio - 12/18/2020 5:04 pm CLINICAL HISTORY: dizziness Headache, drowsiness, dizziness COMPARISON: No comparisons TECHNIQUE: CT angiography of the neck vessels was performed with MIPs. All CT scans are performed using dose optimization technique as appropriate and may include automated exposure control or mA/KV adjustment according to patient size. FINDINGS: A left aortic arch is identified with normal three vessel configuration of the great vesse ls. No significant flow abnormality is seen of the common carotid bilaterally. Small amount of atheromatous plaquing is seen involving the proximal right internal carotid artery. N o significant stenosis is identified involving the cervical segments of both internal carotid arterie s. Normal flow is seen within both vertebral arteries. Moderate lower cervical degenerative changes are present. IMPRESSION: No significant flow abnormality of the neck vessels is identified.
--- NOTE | 2020-12-18 17:24 | EDPHYS ---
Physician Documentation [facility] Name: Olga Yang Age: 64 yrs Sex: Female : 1955 Arrival Date: 12/18/2020 Time: 14:14 Bed 2 Private MD: ED Physician Michele Jones HPI: 12/18 15:01 This 64 yrs old Female presents to ER via Ambulatory with complaints of jmm Headache, Dizziness, Shortness Of Breath. 15:01 This is a 64 year old female with a history of htn that presents ot the ED with jmm complaints of ongoing weakness over the past 2 days. Patient states she is currently being treated for iron deficient anemia. . The patient has experienced similar episodes in the past. Historical: - Allergies: 14:42 No Known Allergies; iw - PMHx: 14:42 Anemia; Hypertension; iw - PSHx: 14:42 Hysterectomy; Tonsillectomy; Hernia repair; lymph node; iw - Immunization history:: Adult Immunizations. - Social history:: Smoking status: Patient denies any tobacco usage or history of. ROS: 15:01 Constitutional: Negative for fever, chills, and weight loss, Cardiovascular: Negative jmm for chest pain, palpitations, and edema, Respiratory: Negative for shortness of breath, cough, wheezing, and pleuritic chest pain. 15:01 All other systems are negative. Exam: 15:01 Constitutional: This is a well developed, well nourished patient who is awake, alert, jmm and in no acute distress. Head/Face: atraumatic. Eyes: EOMI, no conjunctival erythema appreciated ENT: Moist Mucus Membranes Neck: Trachea midline, Supple Chest/axilla: Normal chest wall appearance and motion. Cardiovascular: Regular rate and rhythm. No edema appreciated Respiratory: Normal respirations, no respiratory distress appreciated Abdomen/GI: Non distended, soft Back: Normal ROM Skin: General appearance color normal MS/ Extremity: Moves all extremities, no obvious deformities appreciated, no edema noted to the lower extremities Neuro: Awake and alert, normal gait Psych: Behavior is normal, Mood is normal, Patient is cooperative and pleasant Vital Signs: 14:39 BP 116 / 65; Pulse 74; Resp 16; Temp 98.0; Pulse Ox 96% on R/A; Weight 68.04 kg; Height iw 5 ft. 1 in. (154.94 cm); 15:16 BP 119 / 71; Pulse 68; Resp 20 S; Pulse Ox 97% on R/A; jd3 17:18 BP 109 / 58; Pulse 71; Resp 15; Pulse Ox 95% ; iw 14:39 Body Mass Index 28.34 (68.04 kg, 154.94 cm) iw MDM: 14:41 Patient medically screened. [facility] 17:22 Data reviewed: vital signs, nurses notes. Counseling: I had a detailed discussion with therese the patient and/or guardian regarding: the historical points, exam findings, and any diagnostic results supporting the discharge/admit diagnosis, lab results, radiology results, the need for outpatient follow up, to return to the emergency department if symptoms worsen or persist or if there are any questions or concerns that arise at home. ED course: Normal cerebellar, CTA/CT negative for an acute process. Patient is advised to follow up with neuro/ent for reevaluation. Symptoms relieved in the ED. Patient is otherwise given strict return precautions. Mother understood and agrees with the plan of care. . 12/18 14:35 Order name: Basic Metabolic Panel [facility] 12/18 14:35 Order name: CBC with Diff [facility] 12/18 14:35 Order name: LFT's; Complete Time: 15:48 [facility] 12/18 14:35 Order name: Magnesium; Complete Time: 15:48 [facility] 12/18 14:35 Order name: NT PRO-BNP; Complete Time: 15:48 [facility] 12/18 14:35 Order name: PT-INR; Complete Time: 16:29 [facility] 12/18 14:35 Order name: Troponin (emerg Dept Use Only); Complete Time: 15:48 [facility] 12/18 14:35 Order name: Basic Metabolic Panel; Complete Time: 15:48 [facility] 12/18 14:35 Order name: CBC with Automated Diff; Complete Time: 15:34 [facility] 12/18 14:35 Order name: Type And Screen [facility] 12/18 15:34 Order name: Guiac em1 12/18 14:35 Order name: XRAY Chest (1 view); Complete Time: 15:48 [facility] 12/18 14:35 Order name: EKG; Complete Time: 14:36 [facility] 12/18 14:35 Order name: Cardiac monitoring; Complete Time: 14:47 [facility] 12/18 14:35 Order name: EKG - Nurse/Tech; Complete Time: 15:02 [facility] 12/18 14:35 Order name: IV Saline Lock; Complete Time: 15:02 [facility] 12/18 14:35 Order name: Labs collected and sent; Complete Time: 15:02 [facility] 12/18 14:35 Order name: O2 Per Protocol; Complete Time: 14:47 [facility] 12/18 14:35 Order name: O2 Sat Monitoring; Complete Time: 14:47 [facility] 12/18 15:00 Order name: Gown patient; Complete Time: 15:02 [facility] 12/18 16:03 Order name: Antibody Identification [facility] 12/18 16:05 Order name: D-Dimer; Complete Time: 16:29 [facility] 12/18 16:39 Order name: CT Head Brain wo Cont; Complete Time: 17:16 [facility] 12/18 16:39 Order name: CT Head Angio; Complete Time: 17:16 [facility] 12/18 16:39 Order name: CT Neck Angio; Complete Time: 17:20 [facility] 12/18 16:44 Order name: COVID-19/FLU A+B; Complete Time: 16:44 EDMS Administered Medications: 17:42 Drug: Valium 2 mg Route: IVP; Site: right forearm; jl7 17:54 Follow up: Response: No adverse reaction jl7 Disposition: 18:52 Co-signature as Attending Physician, Michele Jones MD. rn Disposition: 12/18/20 17:23 Discharged to Home. Impression: Vertigo. - Condition is Stable. - Discharge Instructions: Benign Positional Vertigo. - Prescriptions for Meclizine 25 mg Oral Tablet - take 1 tablet by ORAL route every 8 hours As needed; 30 tablet. - Medication Reconciliation Form, Thank You Letter, Antibiotic Education, Prescription Opioid Use form. - Follow up: Jem Braxton MD; When: 2 - 3 days; Reason: Recheck today's complaints, Continuance of care, Re-evaluation by your physician. Signatures: Dispatcher [employer] EDAZ Daron Mayen PA PA jmm Williams, Irene, RN RN iw Nieto, Roman, MD MD rn Leal, Jahala, RN RN jl7 Corrections: (The following items were deleted from the chart) 15:31 14:36 CORONAVIRUS+MR.LAB.BRZ ordered. EDMS EDMS 15:31 14:36 Influenza Screen (A \T\ B)+BA.LAB.BRZ ordered. EDMS EDMS 16:06 15:49 D-DIMER+COAG.LAB.BRZ ordered. EDMS EDMS 18:07 17:23 12/18/2020 17:23 Discharged to Home. Impression: Vertigo. Condition is Stable. jl7 Forms are Medication Reconciliation Form, Thank You Letter, Antibiotic Education, Prescription Opioid Use. Follow up: Jem Braxton; When: 2 - 3 days; Reason: Recheck today's complaints, Continuance of care, Re-evaluation by your physician. therese
--- NOTE | 2020-12-18 17:24 | ER ---
Nurse's Notes [facility] Name: Olga Yang Age: 64 yrs Sex: Female : 1955 Arrival Date: 12/18/2020 Time: 14:14 Bed 2 Private MD: Diagnosis: Vertigo Presentation: 12/18 14:39 Chief complaint: Patient states: has hx of anemia, feels like she needs a blood iw transfusion, has been feeling light headed, headache SOB , is supposed to see a GI doctor to r/o possible slow GI bleed that's causing this. Coronavirus screen: At this time, the client does not indicate any symptoms associated with coronavirus-19. Ebola Screen: Patient negative for fever greater than or equal to 101.5 degrees Fahrenheit, and additional compatible Ebola Virus Disease symptoms Patient denies exposure to infectious person. Patient denies travel to an Ebola-affected area in the 21 days before illness onset. No symptoms or risks identified at this time. Initial Sepsis Screen: Does the patient meet any 2 criteria? No. Patient's initial sepsis screen is negative. Does the patient have a suspected source of infection? No. Patient's initial sepsis screen is negative. Risk Assessment: Do you want to hurt yourself or someone else? Patient reports no desire to harm self or others. Onset of symptoms. 14:39 Method Of Arrival: Ambulatory iw 14:39 Acuity: ADOLFO 3 iw Historical: - Allergies: 14:42 No Known Allergies; iw - PMHx: 14:42 Anemia; Hypertension; iw - PSHx: 14:42 Hysterectomy; Tonsillectomy; Hernia repair; lymph node; iw - Immunization history:: Adult Immunizations. - Social history:: Smoking status: Patient denies any tobacco usage or history of. Screenin:45 Abuse screen: Denies threats or abuse. Nutritional screening: No deficits noted. jd3 Tuberculosis screening: No symptoms or risk factors identified. Fall Risk Ambulatory Aid- None/Bed Rest/Nurse Assist (0 pts). Gait- Normal/Bed Rest/Wheelchair (0 pts) Mental Status- Oriented to own ability (0 pts). Total M[place]ra Fall Scale indicates No Risk (0-24 pts). Assessment: 15:03 General: Appears in no apparent distress. uncomfortable, Behavior is calm, cooperative, jd3 appropriate for age. Pain: Complains of pain in head Quality of pain is described as aching. Neuro: Level of Consciousness is awake, alert, obeys commands, Oriented to person, place, time, situation, Reports headache. Cardiovascular: Denies chest pain, Capillary refill < 3 seconds Patient's skin is warm and dry. Rhythm is regular. Respiratory: Airway is patent Respiratory effort is even, unlabored, Respiratory pattern is regular, symmetrical, Denies cough, shortness of breath. GI: Abdomen is round non-distended, Abd is soft and non tender X 4 quads. Reports nausea. : No signs and/or symptoms were reported regarding the genitourinary system. EENT: No signs and/or symptoms were reported regarding the EENT system. Derm: Skin is intact, Skin is dry, Skin is normal, Skin temperature is warm. Musculoskeletal: Circulation, motion, and sensation intact. Range of motion: intact in all extremities. 16:00 Reassessment: Patient appears in no apparent distress at this time. No changes from iw previously documented assessment. Patient and/or family updated on plan of care and expected duration. Pain level reassessed. Patient is alert, oriented x 3, equal unlabored respirations, skin warm/dry/pink. 17:00 Reassessment: Patient appears in no apparent distress at this time. No changes from jl7 previously documented assessment. Patient and/or family updated on plan of care and expected duration. Pain level reassessed. Patient is alert, oriented x 3, equal unlabored respirations, skin warm/dry/pink. Vital Signs: 14:39 BP 116 / 65; Pulse 74; Resp 16; Temp 98.0; Pulse Ox 96% on R/A; Weight 68.04 kg; Height iw 5 ft. 1 in. (154.94 cm); 15:16 BP 119 / 71; Pulse 68; Resp 20 S; Pulse Ox 97% on R/A; jd3 17:18 BP 109 / 58; Pulse 71; Resp 15; Pulse Ox 95% ; iw 14:39 Body Mass Index 28.34 (68.04 kg, 154.94 cm) ED Course: 14:14 Patient arrived in ED. as 14:33 Daron Mayen PA is PHCP. [facility] 14:33 Michele Jones MD is Attending Physician. [facility] 14:39 Urbano, Jahala, RN is Primary Nurse. jl7 14:42 Triage completed. iw 14:42 Arm band placed on. iw 14:45 Patient has correct armband on for positive identification. Bed in low position. Call jd3 light in reach. Side rails up X 1. Adult w/ patient. photoresist printer on. Pulse ox on. NIBP on. 15:00 by ED staff, sent to lab. Inserted saline lock: 20 gauge in right forearm, using jl7 aseptic technique. Blood collected. 15:42 XRAY Chest (1 view) In Process Unspecified. EDMS 17:03 CT Head Brain wo Cont In Process Unspecified. EDMS 17:04 CT Head Angio In Process Unspecified. EDMS 17:04 CT Neck Angio In Process Unspecified. EDMS 17:23 Jem Braxton MD is Referral Physician. [facility] 17:55 No provider procedures requiring assistance completed. IV discontinued, intact, jl7 bleeding controlled, No redness/swelling at site. Pressure dressing applied. Administered Medications: 17:42 Drug: Valium 2 mg Route: IVP; Site: right forearm; jl7 17:54 Follow up: Response: No adverse reaction jl7 Outcome: 17:23 Discharge ordered by MD. [facility] 17:56 Discharged to home via wheelchair, with family. jl7 17:56 Condition: stable 17:56 Discharge instructions given to patient, Instructed on discharge instructions, follow up and referral plans. medication usage, Demonstrated understanding of instructions, follow-up care, medications, Prescriptions given X 1. 18:07 Patient left the ED. jl7 Signatures: Dispatcher [employer] EDMS Daron Mayen PA PA jmm Martinez, Amelia as Williams, Irene, RN RN iw Ashley Urbano, RN RN jl7 Babatunde Melgar, RN RN jd3
[2020-12-18] MEDS ORDERED: DIAZEPAM 10 MG/2 ML INJ SYRINGE ONE (17:57)
[2020-12-18 18:20] VITALS: TEMP 98
[2020-12-18 18:22] VITALS: BP 109/58; O2SAT 95
== END 2020-12-18 18:07 | disposition home or self-care (01) ==
LOC: ER 14:12
DX: R42 Dizziness and giddiness (principal); R51.9 Headache, unspecified; Z20.822 Contact with and (suspected) exposure to COVID-19; I10 Essential (primary) hypertension
CPT/HCPCS: 93005; 85025; 80048; 36415; 86900; 83735; 86850; 85610; 86870; 86901; 85379; 80076; 84484; 83880; 0240U; 70450; 70496; 70498; 71045; 96374; 99284; Q9967; J3360; 82272

== ENCOUNTER 2022-02-15 12:15 | Emergency (ER) | payer OTHER ==
--- OUTSIDE RECORDS SUMMARY | 2022-02-15 12:20 | XMS REPORT | Continuity of Care Document ---
:1955 Author Organization [facility] t Address [address] [place] [address] Care Team Providers Name Role Phone NORA, Tk Primary Care Physician Unavailable SALO Attending Clinician Unavailable MD Kelly LEONG Attending Clinician Unavailable Case MCGOWAN Attending Clinician Unavailable Yvette ROBLES Attending Clinician Case Mcgowan MD Attending Clinician Doctor Unassigned, Name Attending Clinician Unavailable Radha Attending Clinician Unavailable Rhoda Dowd Attending Clinician RHODA BOGGS Attending Clinician Unavailable Tk MELENDEZ Attending Clinician Unavailable SALO Admitting Clinician Unavailable SARI DEUTSCH Admitting Clinician Unavailable YVETTE Admitting Clinician Unavailable Radha Admitting Clinician Unavailable RHODA BOGGS Admitting Clinician Unavailable Payers Payer Name Policy Type Policy Number Effective Date Expiration Date S wilber MANAGED MEDICARE [id number] 2020 HMO GENERIC 00:00:00 [facility] pic5 [id number] 2020 (MEDICARE 00:00:00 REPLACEMENT HMO) Problems Condition Condition Condition Status Onset Resolution Last Treating Co mments Source Name Details Category Date Date Treatment Clinician Date Essential Essential Disease Active Uni vers hypertensi hypertensi 2-27 it y of on on 00:00: [place] 00 Medical Branch Family Family Disease Active 2019-0 Univers history of history of 2-27 [place] of early CAD early CAD [place] Chest pain Chest pain Disease Active 2019-0 U nivers 2-26 ity of 00:00: [place] [address] 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 Osteopenia Osteopenia Disease Active U nivers of right of right 7-05 ity of upper [place] [facility] Other Other Disease Active Univers infective infective 7-05 ity of acute acute 00:00: [place] otitis otitis 00 Medical externa of externa of Br anch right ear right ear Chronic Chronic Disease Active Univers pain of pain of 7-05 ity of right right 00:00: [place] upper upper 00 Medical extremity extremity Bran ch H/O total H/O total Disease Active 2014-11 Uni vers hysterecto hysterecto 12-19 it y of my my 00:00: [place] 00 [facility] Allergies, Adverse Reactions, Alerts Allergy Allergy Status Severity Reaction(s) Onset Inactive Treating Comm ents Source Name Type Date Date Clinician NO KNOWN Drug Active Univers ALLERGIE Class ity of [facility] Social History Social Habit Start Date Stop Date Quantity Comments Source Exposure to Not sure [facility] SARS-CoV-2 (event) Medica l Branch Alcohol intake 2021-10-22 2021-10-22 1.14 /d [facility] 00:00:00 00:00:00 [facility] Tobacco use and 2015-10-18 2015-10-18 Never used [facility] exposure 00:00:00 00:00:00 [facility] Sex [birth year] [facility] 00:00:00 00:00:00 [facility] Smoking Status Start Date Stop Date Source Never smoker [facility] Medications Ordered Filled Start Stop Current Ordering Indication Dosage Frequency Signature Comments Components Source Medication Medication Date Date Medication? Clinician (SIG) Name Name maalox:diph 2020-11- No 15mL 15 mL, Uni vers enhydrAMINE 12-24 Oral, ity of :lidocaine 06:45: 05:50 ONCE, 1 [place] as 2 % viscous 00 :00 dose, On Medi samuel 1:1:1 [place] Branch (FIRST-MOUT 10/23/21 [facility]) at 0045, oral Routine suspension 15 mL iohexol 2020-11- No [id number] 120mL 120 mL, U nivers (OMNIPAQUE 2-13 -13 Intravenou it y of 350 04:00: 03:47 s, ONCE, 1 [place] BULK-100 00 :00 dose, On Medical mL) [place] Branch injection 10/22/21 120 mL at 2200, Routine ondansetron 2020-11- No 4mg 4 mg, Slow Univers (ZOFRAN 2-23 10-13 IV Push, ity of (PF)) 03:30: 02:26 ONCE, 1 [place] injection 4 00 :00 dose, On Medi samuel mg [place] 10/22/21 at 2130, TONIA ondansetron 2020-11 Yes [id number] 4mg Take 1 Univers (ZOFRAN) 4 2-12 tablet by ity of mg tablet 00:00: mouth [place] 00 every 8 Medical (eight) Branch hours as needed for Nausea and Vomiting (N/V). NaCl 0.9% 2020- No 1000mL at 999 Uni vers (NS) bolus 07-30-19 mL/hr, ity of infusion 00:45: 02:03 1,000 mL, [place] as 1,000 mL 00 :00 IV Medical Infusion, Branch ONCE, 1 dose, On 07/29/21 at 1945, STAT NaCl 0.9% 2020- No 1000mL at 999 Uni vers (NS) bolus 07-30 09-19 mL/hr, ity of infusion 00:45: 02:03 1,000 mL, [place] as 1,000 mL 00 :00 IV Medical Infusion, Branch ONCE, 1 dose, On 07/29/21 at 1945, STAT lisinopril Yes [id number] 10mg Take 1 U nivers 10 mg 5-21 tablet by ity of tablet 00:00: mouth [place] 00 daily. Medical Branch lisinopril Yes [id number] 10mg Take 1 U nivers 10 mg 5-21 tablet by ity of tablet 00:00: mouth [place] [address] [facility] lisinopril Yes [id number] 10mg Take 1 U nivers 10 mg 5-21 tablet by ity of tablet 00:00: mouth [place] [address] [facility] lisinopril Yes [id number] 10mg Take 1 U nivers 10 mg 5-21 tablet by ity of tablet 00:00: mouth [place] 00 daily. Medical Branch SUMAtriptan 2019- Yes [id number] One by Univers 50 mg 4-15 mouth at ity of tablet 00:00: [facility], [place] 00 may repeat Medical times one Branch in 2 hours if OLIVA not improving. Max is 2 per day. SUMAtriptan 2019- Yes [id number] One by Univers 50 mg 4-15 mouth at ity [facility] [place] may repeat Medical times one Branch in 2 hours if OLIVA not improving. Max is 2 per day. SUMAtriptan 2019- Yes [id number] One by Univers 50 mg 4-15 mouth at ity of tablet 00:00: [facility], [place] may repeat Medical times one Branch in 2 hours if OLIVA not improving. Max is 2 per day. SUMAtriptan 2018- Yes [id number] One by Univers 50 mg 4-15 mouth at ity of tablet 00:00: [facility], [place] may repeat Medical times one Branch in 2 hours if OLIVA not improving. Max is 2 per day. Immunizations Ordered Filled Immunization Date Status Comments [facility] e Immunization Name Name Pneumococcal 2019-01-07 Completed University o f Polysaccharide, 00:00:00 [place] Med ical PPSV23 (PNEUMOVAX) Branch Influenza High Dose 2019-01-07 Completed Unive rsity of 00:00:00 [facility] [place] [facility] Pneumococcal 2019-01-07 Completed University o f Polysaccharide, 00:00:00 [place] Med ical PPSV23 (PNEUMOVAX) Branch Influenza High Dose 2019-01-07 Completed Unive rsity of 00:00:00 [facility] [place] [facility] Pneumococcal 2019-01-07 Completed University o f Polysaccharide, 00:00:00 [place] Med ical PPSV23 (PNEUMOVAX) Branch Influenza High Dose 2019-01-07 Completed Unive rsity of 00:00:00 [facility] [place] [facility] Pneumococcal 2019-01-07 Completed University o f Polysaccharide, 00:00:00 [place] Med ical PPSV23 (PNEUMOVAX) Branch Influenza High Dose 2019-01-07 Completed Unive rsity of 00:00:00 [facility] [place] [facility] Vital Signs Vital Name Observation Time Observation Value Comments Source Systolic blood 2021-10-23 05:00:00 142 mm[Hg] Univer sity of pressure [facility] [place] [facility] Diastolic blood 2021-10-23 05:00:00 76 mm[Hg] Unive rsity of pressure [facility] [place] [facility] Heart rate 2021-10-23 05:00:00 61 /min Universi ty of [facility] [place] [facility] Respiratory rate 2021-10-23 05:00:00 19 /min Univ ersity of [facility] [place] [facility] Oxygen saturation in 2021-10-23 05:00:00 95 /min University of Arterial blood by [facility] Pulse oximetry Branch Body temperature 2021-10-23 01:49:00 37.11 Pamela [facility] ersity of [place] Medical [place] Body height 2021-10-23 01:49:00 152.4 cm Universi ty of [facility] [place] [facility] Body weight 2021-10-23 01:49:00 63.957 kg Universi ty [facility] BMI 2021-10-23 01:49:00 27.54 kg/m2 Universi ty [facility] Systolic blood 2021-07-30 01:00:00 137 mm[Hg] Univer sity of [facility] Diastolic blood 2021-07-30 01:00:00 69 mm[Hg] Unive rsity of pressure [facility] [place] [facility] Heart rate 2021-07-30 01:00:00 62 /min Universi ty of [facility] [place] [facility] Respiratory rate 2021-07-30 01:00:00 20 /min [facility] [place] [facility] Oxygen saturation in 2021-07-30 01:00:00 95 /min University of Arterial blood by [facility] Pulse oximetry Branch Body temperature 2021-07-29 23:25:00 36.89 Pamela [facility] [place] [facility] Body weight 2021-07-29 23:25:00 70.308 kg Universi ty [facility] Medical [place] BMI 2021-07-29 23:25:00 29[facility]29 [facility] Procedure Date / Time Performed Performing Clinician [facility] e CT ABDOMEN PELVIS W 2021-10-23 03:51:20 Coleman Crawford [facility] CONTRAST [facility] XR CHEST 1 VW 2021-10-23 03:50:59 Coleman Crawford [place] o f [facility] [place] [facility] COMP. METABOLIC PANEL 2021-10-23 02:46:00 Coleman Crawford [facility] ([id number]) Medical Branch LIPASE 2021-10-23 02:06:00 [facility] 2021-10-23 02:06:00 [facility] CBC WITH DIFF 2021-10-23 02:06:00 [facility] 2021-10-23 02:06:00 Yvette [facility] N-TERMINAL PRO-BNP 2021-10-23 02:06:00 [facility] (ID NOW RAPID 2021-10-23 02:06:00 Coleman Crawford [facility] TESTING) [facility] CONSENT/REFUSAL FOR 2021-10-23 01:34:43 Doctor Unassigned, No Un [facility] DIAGNOSIS AND Name Medical Branch TREATMENT URINALYSIS 2021-07-30 00:36:00 Cherelle Boggs [facility] XR CHEST 1 VW 2021-07-29 23:58:38 Cherelle Boggs Rhoda [facility] MAGNESIUM 2021-07-29 23:44:00 Cherelle Boggs [facility] TROPONIN I 2021-07-29 23:44:00 Cherelle Boggs [facility] COMP. METABOLIC PANEL 2021-07-29 23:44:00 Cherelle Boggs [facility] ([id number]) Medical Branch CBC WITH DIFF 2021-07-29 23:44:00 Cherelle Boggs [facility] Encounters Start End Encounter Admission Attending Care Care Encounter Source Date/Time Date/Time Type Type Clinicians Facility Department ID 2021-12-19 2021-12-19 [id number] [place] 00:00:00 00:00:00 [facility] [address] 2021-12-05 2021-12-07 [facility] [id number] [id number] [place] 00:00:00 00:00:00 [facility] [address] 2021-11-30 2021-11-30 [facility] 2[facility] [id number] [place] 00:00:00 00:00:00 BEAR 155 Method i 2021-11-15 2021-11-15 Outpatient [facility] [id number] [place] 00:00:00 00:00:00 BEAR 152 Method i 2021-11-15 2021-11-15 Outpatient [facility]O [facility] [id number] [place] 00:00:00 00:00:00 BEAR 319 Method i 2021-11-14 2021-11-14 Outpatient [facility]O [facility] [id number] [place] 00:00:00 00:00:00 BEAR 472 Method i 2021-10-22 2021-10-23 Emergency X JUAN M [facility] ERT [id number] Univers 19:59:00 00:06:00 KEARA itjenn of [facility] [place] [facility] 2021-10-22 2021-10-23 Emergency Coleman Crawford [facility] [id number] Univers 19:59:00 00:06:00 Keara Mcgowan [id number] ity of [place] 4.2.7.2.686 [facility] [id number] [facility] 084 Branch 2021-10-22 2021-10-22 Orders Doctor LIDYA [id number] Univers 00:00:00 00:00:00 Only Unassigned, [place] [id number] ity of [place] [facility] [id number] [place] [id number] [facility] 009 Branch 2021-09-13 2021-09-13 Outpatient Ogweno_B DMG DMG [id number] [facility] 07:29:00 07:29:00 1103 Medica l Group 2021-07-29 2021-07-29 Emergency Cherelle Boggs [facility] [id number] Univers 18:23:00 21:09:00 Rhoda Bragg [id number] i ty of [place] 4[place]2.7.2.686 [place] [id number] [facility] 084 Branch 2021-07-29 2021-07-29 Emergency X Cherelle BOGGS [facility] ERT [id number] Univers 18:23:00 21:09:00 [facility] 2021-07-03 2021-07-03 Outpatient DMG DMG [id number] [facility] 08:00:00 08:00:00 0823 Medica l Group 2020-10-21 2020-10-21 Outpatient R NORA, [facility] [id number] Univers 16:00:00 16:00:00 ASPEN [id number] [facility] Results Test Description Test Time Test Comments Results Result Comments Source SARS-CoV-2 (COVID-19) RNA [Presence] in Respiratory sp ecimen by 2021-11-30 22:44:40 PRICILLA with probe detection Test Item Value Reference Range Interpretation Comme nts SARS-CoV-2 (COVID-19) RNA [Presence] in Respiratory Not detected No t-Detected specimen by PRICILLA with probe detection (test code = 82082-6) Whether patient is employed in a healthcare setting (test code = 94359-9) Whether the patient has symptoms related to condition of interest (test code = 78273-7) Patient was hospitalized because of this condition (test code = 44942-4) Whether the patient was admitted to intensive care unit (ICU) for condition of interest (test code = 97904-4) Whether patient resides in a congregate care setting (test code = 83595-9) COMP. METABOLIC PANEL ([id number])2021-10-23 03:11:35 Test Item Value Reference Range Interpretation Comments NA (test code = 138 mmol/L 135-145 9626525665) K (test code = 4.2 mmol/L 3.5-5.0 5006990343) CL (test code = 108 mmol/L 98-108 9120126359) CO2 TOTAL (test code 24 mmol/L 23-31 = 4697010238) AGAP (test code = 2-16 6070867165) BUN (test code = 17 mg/dL 7-23 8102879436) GLUCOSE (test code = 103 mg/dL 70-110 4751713740) CREATININE (test code 0.81 mg/dL 0.50-1.04 = 8308116810) TOTAL BILI (test code 0.3 mg/dL 0.1-1.1 = 0802379345) CALCIUM (test code = 9.8 mg/dL 8.6-10.6 5746498746) T PROTEIN (test code 6.4 g/dL 6.3-8.2 = 4980265105) ALBUMIN (test code = 4.0 g/dL 3.5-5.0 1638000500) ALK PHOS (test code = 88 U/L 34-122 9327539713) ALTv (test code = 19 U/L 5-35 1742-6) AST(SGOT) (test code 37 U/L 13-40 = 6704095285) eGFR (test code = mL/min/1.73m2 0991354407) NGOC (test code = NGOC) Association of Glomerular Filtration Rate (GFR) and Staging of Kidney Disease* + + +- +| GFR (mL/min/1.73 m2) ?| With Kidney Damage ?| ?Without Kidney Damage+ ------+ ----+ ------+| ?>90 ?| ?Stage one ?| ? Normal ?+ -+ + -+| ?60-89 ?| ?Stage two ?| ? Decreased GFR ? + + +- +| ?30-59 ?| ?Stage three ?| ? Stage three ? + + +- +| ?15-29 ?| ?Stage four ? | ? Stage four ?+ -+ + -+| ?<15 (or dialysis) ? ?| ?Stage five ? | ? Stage five ?+ -+ + -+ *Each stage assumes the associated GFR level has been in effect for at least three months. ?Stages 1 to 5, with or without kidney disease, indicate chronic kidney disease. Notes: Determination of stages one and two (with eGFR >59mL/min/1.73 m2) requires estimation of kidney damage for at least three months as defined by structural or functional abnormalities of the kidney, manifested by either:Pathological abnormalities or Markers of kidney damage (including abnormalities in the composition of the blood or urine or abnormalities in imaging tests). [facility] [id number] 02:51:36 Test Item Value Reference Interpretation Comments Range TROPONIN I (test 0.026 ng/mL See_Comment Hemolyzed code = 6956403750) specimen [Automated message] The system which generated this result transmitted reference range : <=0.034. The reference range was not used to interpret this result as normal/abnormal . NGOC (test code = Reference (Normal) NGOC) Range (defined by the 99th percentile reference limit): <= 0.034 ng/mL Note: Cardiac troponin begins to rise 3-4 hours after the onset of ischemia. Repeat in 4-6 hours if the sample was drawn within 3-4 hours of the onset of the symptom and found normal. Diagnosis of myocardial injury is made with acute changes in cTn concentrations with at least one serial sample above the 99th percentile upper reference limit (URL), taken together with the patient's clinical presentation. Biotin has been reported to cause a negative bias, interpret results relative to patient's use of biotin. Lab Interpretation Normal (test code = 16827-8) [facility] [id number] 02:47:15 Test Item Value Reference Range Interpretation Comments NT-proBNP (test code 75 pg/mL See_Comment [Autom ated = 2142266645) message] The system which generated this result transmitted reference range : <=125. The reference range was not used to interpret this result as normal/abnormal . NGOC (test code = NGOC) Biotin has been reported to cause a negative bias, interpret results relative to patient's use of biotin. Lab Interpretation Normal (test code = 43056-0) [facility] 02:44:09 Test Item Value Reference Range Interpretation Comments LIPASE (test code = 184 U/L 0-220 Hemolyze d specimen 2927203627) Lab Interpretation (test Normal code = 90056-9) [facility] WITH [id number] 02:19:54 Test Item Value Reference Range Interpretation Comments WBC (test code = See_Comment [Automated 3490-2) message] The sy stem which generated this result transmitted reference range : 4.30 - 11.10 10*3/?L. The reference range was not used to interpret this result as normal/abnormal . RBC (test code = See_Comment [Automated 249-8) message] The sy stem which generated this result transmitted reference range : 3.93 - 5.25 10*6/?L. The reference range was not used to interpret this result as normal/abnormal . HGB (test code = 11.6 g/dL 11.6-15.0 718-7) HCT (test code = 39.3 % 35.7-45.2 4544-3) MCV (test code = 88.3 fL 80.6-95.5 787-2) MCH (test code = 26.1 pg 25.9-32.8 785-6) MCHC (test code = 29.5 g/dL 31.6-35.1 L 786-4) RDW-SD (test code = 45.4 fL 39.0-49.9 32644-9) RDW-CV (test code = 14.2 % 12.0-15.5 788-0) PLT (test code = See_Comment H [Automated 777-3) message] The sy stem which generated this result transmitted reference range : 166 - 358 10*3/ ?L. The reference r naima was not used to interpret this result as normal/abnormal . MPV (test code = 11.0 fL 9.5-12.9 22782-2) NRBC/100 WBC (test See_Comment [Automat ed code = 7372938957) message] The system which generated this result transmitted reference range : 0.0 - 10.0 /100 WBCs. The refer ence range was not u sed to interpret th is result as normal/abnormal . NRBC x10^3 (test code <0.01 See_Comment [Auto mated = 8034365497) message] The s ystem which generated this result transmitted reference range : 10*3/?L. The reference range was not used to interpret this result as normal/abnormal . GRAN MAT (NEUT) % 75.0 % (test code = 770-8) IMM GRAN % (test code 0.50 % = 7075728621) LYMPH % (test code = 13.2 % 736-9) MONO % (test code = 7.4 % 5905-5) EOS % (test code = 2.7 % 713-8) BASO % (test code = 1.2 % 706-2) GRAN MAT x10^3(ANC) 7.22 10*3/uL 1.88-7.09 H (test code = 5161494256) IMM GRAN x10^3 (test 0.05 10*3/uL 0.00-0.06 code = 4034838283) LYMPH x10^3 (test code 1.27 10*3/uL 1.32-3.29 L = 731-0) MONO x10^3 (test code 0.71 10*3/uL 0.33-0.92 = 742-7) EOS x10^3 (test code = 0.26 10*3/uL 0.03-0.39 711-2) BASO x10^3 (test code 0.12 10*3/uL 0.01-0.07 H = 704-7) Lab Interpretation Abnormal (test code = 95732-0) [facility] [place] [id number] 00:27:03 Test Item Value Reference Interpretation Comments Range TROPONIN I (test 0.003 ng/mL See_Comment [Automated code = 1317365219) message] The system which generated this result transmitted reference range : <=0.034. The reference range was not used to interpret this result as normal/abnormal . NGOC (test code = Reference (Normal) NGOC) Range (defined by the 99th percentile reference limit): <= 0.034 ng/mL Note: Cardiac troponin begins to rise 3-4 hours after the onset of ischemia. Repeat in 4-6 hours if the sample was drawn within 3-4 hours of the onset of the symptom and found normal. Diagnosis of myocardial injury is made with acute changes in cTn concentrations with at least one serial sample above the 99th percentile upper reference limit (URL), taken together with the patient's clinical presentation. Biotin has been reported to cause a negative bias, interpret results relative to patient's use of biotin. Lab Interpretation Normal (test code = 11340-7) [facility] [place] [id number] 00:27:03 Test Item Value Reference Interpretation Comments Range TROPONIN I (test 0.003 ng/mL See_Comment [Automated code = 2879630518) message] The system which generated this result transmitted reference range : <=0.034. The reference range was not used to interpret this result as normal/abnormal . NGOC (test code = Reference (Normal) NGOC) Range (defined by the 99th percentile reference limit): <= 0.034 ng/mL Note: Cardiac troponin begins to rise 3-4 hours after the onset of ischemia. Repeat in 4-6 hours if the sample was drawn within 3-4 hours of the onset of the symptom and found normal. Diagnosis of myocardial injury is made with acute changes in cTn concentrations with at least one serial sample above the 99th percentile upper reference limit (URL), taken together with the patient's clinical presentation. Biotin has been reported to cause a negative bias, interpret results relative to patient's use of biotin. Lab Interpretation Normal (test code = 93076-2) [facility] 00:16:07 Test Item Value Reference Range Interpretation Comments MAGNESIUM (test code = 5848122610) 2.2 mg/dL 1.7-2.4 Lab Interpretation (test code = Normal 80028-8) [facility] 00:16:07 Test Item Value Reference Range Interpretation Comments MAGNESIUM (test code = 5773955406) 2.2 mg/dL 1.7-2.4 Lab Interpretation (test code = Normal 72354-5) [facility]OL[facility] (11569)2021-07-30 00:15:46 Test Item Value Reference Range Interpretation Comments NA (test code = 138 mmol/L 135-145 3532133338) K (test code = 3.6 mmol/L 3.5-5.0 3856777874) CL (test code = 108 mmol/L 98-108 9325553589) CO2 TOTAL (test code = 24 mmol/L 23-31 7127464612) AGAP (test code = 2-16 1742983332) BUN (test code = 12 mg/dL 7-23 6535070845) GLUCOSE (test code = 127 mg/dL 70-110 H 1205117894) CREATININE (test code = 0.79 mg/dL 0.50-1.04 2580531620) TOTAL BILI (test code = 0.4 mg/dL 0.1-1.5 4381492043) CALCIUM (test code = 8.7 mg/dL 8.6-10.6 2301613412) T PROTEIN (test code = 6.1 g/dL 6.3-8.2 L 1208736746) ALBUMIN (test code = 3.5 g/dL 3.5-5.0 4416313122) ALK PHOS (test code = 78 U/L 34-122 0646487872) ALTv (test code = 14 U/L 5-35 1742-6) AST(SGOT) (test code = 20 U/L 13-40 5500507523) eGFR (test code = mL/min/1.73m2 6488659402) NGOC (test code = NGOC) Association of Glomerular Filtration Rate (GFR) and Staging of Kidney Disease* + --+ --+ ------+| GFR (mL/min/1.73 m2) ?| With Kidney Damage ?| ?Without Kidney Damage+ --------+ --------+ +| ?>90 ?| ?Stage one ?| ? Normal ?+ ---+ ---+ -------+| ?60-89 ?| ?Stage two ?| ? Decreased GFR ? + --+ --+ ------+| ?30-59 ?| ?Stage three ?| ? Stage three ? + --+ --+ ------+| ?15-29 ?| ?Stage four ? | ? Stage four ?+ ---+ ---+ -------+| ?<15 (or dialysis) ? ?| ?Stage five ? | ? Stage five ?+ ---+ ---+ -------+ *Each stage assumes the associated GFR level has been in effect for at least three months. ?Stages 1 to 5, with or without kidney disease, indicate chronic kidney disease. Notes: Determination of stages one and two (with eGFR >59mL/min/1.73 m2) requires estimation of kidney damage for at least three months as defined by structural or functional abnormalities of the kidney, manifested by either:Pathological abnormalities or Markers of kidney damage (including abnormalities in the composition of the blood or urine or abnormalities in imaging tests). Lab Interpretation Abnormal (test code = 41558-0) [facility]. METABOLIC PANEL ([id number])2021-07-30 00:15:46 Test Item Value Reference Range Interpretation Comments NA (test code = 138 mmol/L 135-145 2036078227) K (test code = 3.6 mmol/L 3.5-5.0 4748895992) CL (test code = 108 mmol/L 98-108 8864570626) CO2 TOTAL (test code = 24 mmol/L 23-31 4571079532) AGAP (test code = 2-16 8696124476) BUN (test code = 12 mg/dL 7-23 3805784868) GLUCOSE (test code = 127 mg/dL 70-110 H 0927388261) CREATININE (test code = 0.79 mg/dL 0.50-1.04 7036542778) TOTAL BILI (test code = 0.4 mg/dL 0.1-1.7 3855580934) CALCIUM (test code = 8.7 mg/dL 8.6-10.6 7061453257) T PROTEIN (test code = 6.1 g/dL 6.3-8.2 L 1330435348) ALBUMIN (test code = 3.5 g/dL 3.5-5.0 1635527579) ALK PHOS (test code = 78 U/L 34-122 4310702685) ALTv (test code = 14 U/L 5-35 1742-6) AST(SGOT) (test code = 20 U/L 13-40 0822595341) eGFR (test code = mL/min/1.73m2 1055060519) NGOC (test code = NGOC) Association of Glomerular Filtration Rate (GFR) and Staging of Kidney Disease* + --+ --+ ------+| GFR (mL/min/1.73 m2) ?| With Kidney Damage ?| ?Without Kidney Damage+ --------+ --------+ +| ?>90 ?| ?Stage one ?| ? Normal ?+ ---+ ---+ -------+| ?60-89 ?| ?Stage two ?| ? Decreased GFR ? + --+ --+ ------+| ?30-59 ?| ?Stage three ?| ? Stage three ? + --+ --+ ------+| ?15-29 ?| ?Stage four ? | ? Stage four ?+ ---+ ---+ -------+| ?<15 (or dialysis) ? ?| ?Stage five ? | ? Stage five ?+ ---+ ---+ -------+ *Each stage assumes the associated GFR level has been in effect for at least three months. ?Stages 1 to 5, with or without kidney disease, indicate chronic kidney disease. Notes: Determination of stages one and two (with eGFR >59mL/min/1.73 m2) requires estimation of kidney damage for at least three months as defined by structural or functional abnormalities of the kidney, manifested by either:Pathological abnormalities or Markers of kidney damage (including abnormalities in the composition of the blood or urine or abnormalities in imaging tests). Lab Interpretation Abnormal (test code = 39552-6) [facility] WITH [id number] 00:03:23 Test Item Value Reference Range Interpretation Comments WBC (test code = See_Comment [Automated 6690-2) message] The sy stem which generated this result transmitted reference range : 4.30 - 11.10 10*3/?L. The reference range was not used to interpret this result as normal/abnormal . RBC (test code = See_Comment L [Automated 789-8) message] The sy stem which generated this result transmitted reference range : 3.93 - 5.25 10*6/?L. The reference range was not used to interpret this result as normal/abnormal . HGB (test code = 8.1 g/dL 11.6-15.0 L 718-7) HCT (test code = 26.6 % 35.7-45.2 L 4544-3) MCV (test code = 92.0 fL 80.6-95.5 787-2) MCH (test code = 28.0 pg 25.9-32.8 785-6) MCHC (test code = 30.5 g/dL 31.6-35.1 L 786-4) RDW-SD (test code = 43.8 fL 39.0-49.9 23741-0) RDW-CV (test code = 13.2 % 12.0-15.5 788-0) PLT (test code = See_Comment H [Automated 777-3) message] The sy stem which generated this result transmitted reference range : 166 - 358 10*3/ ?L. The reference r naima was not used to interpret this result as normal/abnormal . MPV (test code = 11.1 fL 9.5-12.9 74576-0) NRBC/100 WBC (test See_Comment [Automat ed code = 2981300354) message] The system which generated this result transmitted reference range : 0.0 - 10.0 /100 WBCs. The refer ence range was not u sed to interpret th is result as normal/abnormal . NRBC x10^3 (test code <0.01 See_Comment [Auto mated = 8073001772) message] The s ystem which generated this result transmitted reference range : 10*3/?L. The reference range was not used to interpret this result as normal/abnormal . GRAN MAT (NEUT) % 70.3 % (test code = 770-8) IMM GRAN % (test code 0.60 % = 0856804528) LYMPH % (test code = 14.3 % 736-9) MONO % (test code = 9.1 % 5905-5) EOS % (test code = 4.6 % 713-8) BASO % (test code = 1.1 % 706-2) GRAN MAT x10^3(ANC) 5.00 10*3/uL 1.88-7.09 (test code = 5146190064) IMM GRAN x10^3 (test 0.04 10*3/uL 0.00-0.06 code = 3939440081) LYMPH x10^3 (test code 1.02 10*3/uL 1.32-3.29 L = 731-0) MONO x10^3 (test code 0.65 10*3/uL 0.33-0.92 = 742-7) EOS x10^3 (test code = 0.33 10*3/uL 0.03-0.39 711-2) BASO x10^3 (test code 0.08 10*3/uL 0.01-0.07 H = 704-7) Lab Interpretation Abnormal (test code = 22101-9) [facility] WITH [id number] 00:03:23 Test Item Value Reference Range Interpretation Comments WBC (test code = See_Comment [Automated 6690-2) message] The sy stem which generated this result transmitted reference range : 4.30 - 11.10 10*3/?L. The reference range was not used to interpret this result as normal/abnormal . RBC (test code = See_Comment L [Automated 789-8) message] The sy stem which generated this result transmitted reference range : 3.93 - 5.25 10*6/?L. The reference range was not used to interpret this result as normal/abnormal . HGB (test code = 8.1 g/dL 11.6-15.0 L 718-7) HCT (test code = 26.6 % 35.7-45.2 L 4544-3) MCV (test code = 92.0 fL 80.6-95.5 787-2) MCH (test code = 28.0 pg 25.9-32.8 785-6) MCHC (test code = 30.5 g/dL 31.6-35.1 L 786-4) RDW-SD (test code = 43.8 fL 39.0-49.9 21600-5) RDW-CV (test code = 13.2 % 12.0-15.5 788-0) PLT (test code = See_Comment H [Automated 777-3) message] The sy stem which generated this result transmitted reference range : 166 - 358 10*3/ ?L. The reference r naima was not used to interpret this result as normal/abnormal . MPV (test code = 11.1 fL 9.5-12.9 18168-8) NRBC/100 WBC (test See_Comment [Automat ed code = 1286483553) message] The system which generated this result transmitted reference range : 0.0 - 10.0 /100 WBCs. The refer ence range was not u sed to interpret th is result as normal/abnormal . NRBC x10^3 (test code <0.01 See_Comment [Auto mated = 7561076958) message] The s ystem which generated this result transmitted reference range : 10*3/?L. The reference range was not used to interpret this result as normal/abnormal . GRAN MAT (NEUT) % 70.3 % (test code = 770-8) IMM GRAN % (test code 0.60 % = 4127900385) LYMPH % (test code = 14.3 % 736-9) MONO % (test code = 9.1 % 5905-5) EOS % (test code = 4.6 % 713-8) BASO % (test code = 1.1 % 706-2) GRAN MAT x10^3(ANC) 5.00 10*3/uL 1.88-7.09 (test code = 5164487100) IMM GRAN x10^3 (test 0.04 10*3/uL 0.00-0.06 code = 9627812528) LYMPH x10^3 (test code 1.02 10*3/uL 1.32-3.29 L = 731-0) MONO x10^3 (test code 0.65 10*3/uL 0.33-0.92 = 742-7) EOS x10^3 (test code = 0.33 10*3/uL 0.03-0.39 711-2) BASO x10^3 (test code 0.08 10*3/uL 0.01-0.07 H = 704-7) Lab Interpretation Abnormal (test code = 42123-0) [facility]"
[2022-02-15 14:02] LABS: Absolute Lymphocytes (CBC) 0.8 K/uL (0.7-4.9); Hematocrit 41.8 % (36.0-45.0); Lymphocytes % 8.3 % (15.3-44.8); MPV 8.8 fL (7.6-11.3); RBC Red Blood Cell Count 5.14 M/uL (3.86-4.86)
[2022-02-15] MEDS ORDERED: ONDANSETRON 4 MG/2 ML VIAL ONE (14:11)
[2022-02-15] MEDS ORDERED: NA CHLORIDE 0.9% 500 ML ONE (14:11)
[2022-02-15] MEDS ORDERED: MORPHINE 4 MG/ML SYR ONE (14:11)
[2022-02-15 14:32] LABS: Albumin 3.6 g/dL (3.4-5.0); Bilirubin Total 0.5 mg/dL (0.2-1.0); Potassium 4.3 mmol/L (3.5-5.1); Protein, Total 6.6 g/dL (6.4-8.2); Troponin High Sensitivity 7.2 pg/mL (<58.9)
[2022-02-15 14:47] LABS: Anisocytosis 1+; Blood Morphology Comment NOTED (NOT SEEN); Platelet Estimate ADEQ; White Blood Cell Scan OK (OK)
--- NOTE | 2022-02-15 15:13 | RAD REPORT ---
EXAM DESCRIPTION: CT - Abdomen Pelvis W Contrast - 02/15/2022 2:56 pm CLINICAL HISTORY: abdominal pain;Chest pain COMPARISON: Small Bowel Series dated 01/11/2021; Thorax W/ Con dated 02/15/2022 TECHNIQUE: Biphasic, helical CT imaging of the abdomen and pelvis was performed following 100 ml non -ionic IV contrast. No oral contrast administered. All CT scans are performed using dose optimization technique as appropriate and may include automated exposure control or mA/KV adjustment according to patient size. FINDINGS: Lung base findings are detailed as part of the separate CT chest report. The liver, spleen, and pancreas show no suspicious findings. Small cyst is present in the upper centr al right lobe. Few small benign-appearing granulomatous calcifications are present in the liver is we ll is within the normal size spleen. No pancreatic or peripancreatic abnormality seen. Symmetric renal function is seen with no hydronephrosis or suspicious renal mass. No pyelonephritis o r acute parenchymal process. No bladder abnormalities. No adrenal abnormalities. Uterus is absent. Ov emy are absent or atrophic. No adnexal mass. Patient had a pre-existing hiatal hernia with approximately 30% of the stomach intrathoracic. That he rnia is again identified and may be slightly larger. There is some congestion and a minimal amount of fluid near the GE junction. The contour of the stomach is distorted by the hernia. There is focal ar ea of additional herniated gastric tissue along the posterior aspect. An acute rent or tear of the di aphragm or adjacent tissues related to a lifting episode is certainly possible. No extraluminal air t o suggest perforation. Gastric banuelos are not clearly thickened or edematous. No specific finding of i schemia seen. The intraabdominal portion of the stomach is unremarkable. No small bowel or acute colon finding. The re is moderate stool volume throughout most of the colon. Appendix is unremarkable. No free air, flu id, pneumatosis or inflammatory stranding in the intraperitoneal region. No mass or bulky lymphadeno ghassan. Disc and bone degenerative changes are present. No acute finding. IMPRESSION: Complex hiatal hernia with at least 30% of the stomach intrathoracic. The hernia was pre sent prior to the patient's acute pain episode though this may have increased slightly since the 01/2021 GI study. There is some fluid and edema in the tissues around the GE junction and herniated stomach. A rent or tear of the diaphragm or adjacent soft tissues related to the recent lifting episode is possible. No specific finding to indicate rent or tear of the distal esophagus or stomach.
--- NOTE | 2022-02-15 15:15 | RAD REPORT ---
EXAM DESCRIPTION: CT - Thorax W/ Con - 02/15/2022 2:56 pm CLINICAL HISTORY: chest pain, epigastric pain COMPARISON: No comparisons TECHNIQUE: Dynamically enhanced 5 mm thick images of the chest were obtained during administration o f 100 mL non-ionic IV contrast. All CT scans are performed using dose optimization technique as appropriate and may include automated exposure control or mA/KV adjustment according to patient size. FINDINGS: No mass or infiltrate in the lung parenchyma. Parenchymal stranding is present in the left base adjacent to a large hiatal hernia. Distal esophagus, stomach and related hernia findings are de tailed in the CT abdomen report. No pleural thickening or pleural effusion. No pneumothorax. No chest wall mass or abnormal axillary lymphadenopathy. No abnormal mediastinal or hilar mass or lymphadenopathy seen. Granulomatous mediastinal and hilar ca lcifications are present. IMPRESSION: Negative contrast enhanced CT chest examination for acute finding. Please see separate CT abdomen and pelvis report detail in findings related to the patient's hiatal h ernia.
[2022-02-15] MEDS ORDERED: HYDROCODONE/APAP 10/325 TAB ONE (16:52)
--- NOTE | 2022-02-15 17:32 | RAD REPORT ---
EXAM DESCRIPTION: CT - Head Brain Wo Cont - 02/15/2022 5:20 pm CLINICAL HISTORY: PAIN COMPARISON: Head Brain Wo Cont dated 12/18/2020 TECHNIQUE: Axial 5 mm thick images of the head were obtained without IV contrast. All CT scans are performed using dose optimization technique as appropriate and may include automated exposure control or mA/KV adjustment according to patient size. FINDINGS: No intracranial hemorrhage, mass, edema or shift of mid-line structures. No acute infarcti on changes seen. No abnormal extra-axial fluid collections. Ventricles are normal. Arterial calcifica tions are seen. Intracranial findings are similar to the prior study. Mastoid air cells and visualized portions of the paranasal sinuses are clear. No acute bony findings. IMPRESSION: Negative non-contrast CT head examination for acute finding. No significant change from the December 2020 study.
--- NOTE | 2022-02-15 17:39 | RAD REPORT ---
EXAM DESCRIPTION: CT - C Spine Wo Con - 02/15/2022 5:20 pm CLINICAL HISTORY: Neck pain, stiffness COMPARISON: CT angio neck examination December 2020 TECHNIQUE: Axial 2 mm thick images of the cervical spine were obtained with sagittal and coronal rec onstruction images generated and reviewed. All CT scans are performed using dose optimization technique as appropriate and may include automated exposure control or mA/KV adjustment according to patient size. FINDINGS: Cervical bodies are normal in height. There is straightening of the usual cervical lordosi s. A very slight or subtle retrolisthesis of C5 noted on C6. C5-6 and C6-7 disc space narrowing prese nt. Multilevel facet joint degenerative changes are present. Endplate spurring and uncovertebral join t changes are present. There are large coarse calcifications along the posterior longitudinal ligamen t at C6 and C7. Left bony foraminal encroachment is present at C3-4 and C4-5. C4-5 disc bulge changes are evident. C5-6 disc herniation is seen flattening the cord and causing spinal stenosis to 6-7 mm. Large coarse calcifications along the posterior aspect of the C6 body causes cord flattening and lalito tral spinal stenosis down to 6 mm. There is also bilateral bony foraminal encroachment at C6-7. Calci fications posterior to C7 cause cord flattening and spinal stenosis to 6 mm as well. These changes ar e generally similar to the December 2020 study. No fracture or acute bony abnormality. No paraspinal mass or hematoma. Central canal detail is inherently limited on CT imaging. IMPRESSION: No fracture or acute cervical spine finding identifiable. Advanced cervical spine degenerative changes are present that include disc herniation at C5-6 and lar ge coarse calcifications posterior to the C6 and C7 bodies that all contribute to spinal stenosis silvia n to 6 mm posterior to the C5-C7 bodies. Degenerative changes and spinal stenosis findings are generally unchanged from the December 2020 stud y.
[2022-02-15] MEDS ORDERED: cloNIDine HCL 0.1 MG TAB ONE (18:11)
--- NOTE | 2022-02-15 18:16 | ER ---
Nurse's Notes [facility] Name: Olga Yang Age: 66 yrs Sex: Female : 1955 Arrival Date: 02/15/2022 Time: 12:17 Bed 26 Private MD: Omkar Downing T Diagnosis: Strain of muscle, fascia and tendon at neck level, initial encounter;Cervical disc disorder with radiculopathy;Hypertensive heart disease without heart failure;Abdominal pain, Generalized Presentation: 02/15 12:25 Chief complaint: Patient states: "I had a hiatal hernia repair done on Dec 05, minesh been ab2 taking it easy but today I was lifting things and moving them around and I have this intense pain in my stomach that goes all the way to my arm." Pt c/o LUQ pain that radiates to her left arm. Pt denies v/d. Pt c/o nausea. Coronavirus screen: Vaccine status: Patient reports receiving the 2nd dose of the covid vaccine. Client denies travel out of the [place] in the last 14 days. At this time, the client does not indicate any symptoms associated with coronavirus-19. Ebola Screen: Patient negative for fever greater than or equal to 101.5 degrees Fahrenheit, and additional compatible Ebola Virus Disease symptoms Patient denies exposure to infectious person. Patient denies travel to an Ebola-affected area in the 21 days before illness onset. No symptoms or risks identified at this time. Initial Sepsis Screen: Does the patient meet any 2 criteria? No. Patient's initial sepsis screen is negative. Does the patient have a suspected source of infection? No. Patient's initial sepsis screen is negative. Risk Assessment: Do you want to hurt yourself or someone else? Patient reports no desire to harm self or others. Onset of symptoms is unknown. 12:25 Method Of Arrival: Wheelchair ab2 12:25 Acuity: ADOLFO 3 ab2 Triage Assessment: 12:28 General: Appears in no apparent distress. uncomfortable, Behavior is cooperative, ab2 appropriate for age. Pain: Complains of pain in left upper quadrant. Cardiovascular: No deficits noted. Denies chest pain, shortness of breath, Patient's skin is warm and dry. Respiratory: No deficits noted. Airway is patent Respiratory effort is even, unlabored, Respiratory pattern is regular, symmetrical. GI: Reports upper abdominal pain, nausea. Musculoskeletal: Reports pain in left arm. Historical: - Allergies: 12:28 No Known Allergies; ab2 - PMHx: 12:28 Anemia; Hypertension; ab2 - PSHx: 12:28 Hiatal Hernia Repair; ab2 - Immunization history:: Adult Immunizations up to date. - Social history:: Smoking status: Patient denies any tobacco usage or history of. Screenin:52 Abuse screen: Denies threats or abuse. Denies injuries from another. Nutritional ld1 screening: No deficits noted. Tuberculosis screening: No symptoms or risk factors identified. Fall Risk None identified. Assessment: 12:52 General: Appears in no apparent distress. uncomfortable, Behavior is cooperative, ld1 anxious. Pain: Complains of pain in abdomen and left arm Pain does not radiate. Pain currently is 9 out of 10 on a pain scale. Quality of pain is described as throbbing, Pain began suddenly, Is continuous. Neuro: Level of Consciousness is awake, alert, obeys commands, Oriented to person, place, time, situation. Cardiovascular: Capillary refill < 3 seconds Patient's skin is warm and dry. Rhythm is sinus rhythm. Respiratory: Airway is patent Respiratory effort is even, unlabored, Respiratory pattern is regular, symmetrical. GI: Abdomen is flat, non-distended, Bowel sounds present X 4 quads. Abd is soft Abdomen is tender to palpation X 4 quads. : No signs and/or symptoms were reported regarding the genitourinary system. EENT: No signs and/or symptoms were reported regarding the EENT system. Derm: No signs and/or symptoms reported regarding the dermatologic system. Musculoskeletal: No signs and/or symptoms reported regarding the musculoskeletal system. 14:03 Reassessment: Patient and/or family updated on plan of care and expected duration. Pain ld1 level reassessed. Pt c/o left neck pain. Notified ERP. See MAR for orders. 14:03 Reassessment: Dr. Veliz at bedside discussing POC. ld1 15:03 Reassessment: Patient appears in no apparent distress at this time. Patient and/or ld1 family updated on plan of care and expected duration. Pain level reassessed. 17:50 Reassessment: Patient appears in no apparent distress at this time. Patient and/or ld1 family updated on plan of care and expected duration. Pain level reassessed. Patient is alert, oriented x 3, equal unlabored respirations, skin warm/dry/pink. Vital Signs: 12:25 BP 178 / 89; Pulse 64; Resp 19; Temp 98.1(TE); Pulse Ox 98% on R/A; Weight 65.77 kg; ab2 Height 5 ft. 0 in. (152.40 cm); Pain 9/10; 12:52 BP 197 / 92; Pulse 56; Resp 20; Pulse Ox 96% on R/A; Pain 9/10; ld1 14:03 BP 195 / 81; Pulse 59; Resp 15; Pulse Ox 100% on R/A; Pain 9/10; ld1 15:03 BP 163 / 67; Pulse 67; Resp 18; Pulse Ox 96% on R/A; ld1 16:34 BP 173 / 81; Pulse 61; Resp 18; Pulse Ox 99% on R/A; ld1 17:50 BP 184 / 79; Pulse 58; Resp 18; Pulse Ox 100% on R/A; ld1 12:25 Body Mass Index 28.32 (65.77 kg, 152.40 cm) ab2 ED Course: 12:17 Patient arrived in ED. am2 12:18 Omkar Downing MD is Private Physician. am2 12:28 Triage completed. ab2 12:29 Arm band placed on right wrist. ab2 12:32 Bee Fischer, RN is Primary Nurse. ld1 12:34 Gil Veliz MD is Attending Physician. kdr 12:52 Patient has correct armband on for positive identification. Placed in gown. Bed in low ld1 position. Call light in reach. Side rails up X2. ekg monitor on. Pulse ox on. NIBP on. Door closed. Noise minimized. Warm blanket given. 12:52 No provider procedures requiring assistance completed. ld1 13:48 CBC with Diff Sent. zm 13:48 CMP Sent. zm 13:48 Lipase Sent. zm 13:49 Troponin High Sensitivity Sent. zm 14:58 Abdomen In Process Unspecified. EDMS 14:58 Thorax W/ Con In Process Unspecified. EDMS 17:22 Head Brain Wo Cont In Process Unspecified. EDMS 17:22 C Spine Wo Con In Process Unspecified. EDMS 18:14 Omkar Downing MD is Referral Physician. kdr 18:39 IV discontinued, intact, bleeding controlled, No redness/swelling at site. ld1 Administered Medications: 14:13 Not Given (Physician Discretion): traMADol 50 mg PO once; RASS on ADMIN: Combtv4, Very ld1 Agttd3, Agttd2, Rstlss1, AlertClm0, Drwsy-1, Lt Sdtn-2, Mod Sdtn-3, Dp Sdtn-4, UnArsble-5 14:14 Drug: Zofran (Ondansetron) 4 mg Route: IVP; Site: left forearm; ld1 14:14 Drug: morphine 4 mg Route: IVP; Site: left forearm; ld1 16:49 Drug: Brandt (HYDROcodone-acetaminophen) 10 mg-325 mg 1 tabs Route: PO; ld1 18:15 Drug: cloNIDine 0.1 mg Route: PO; ld1 18:25 Follow up: Response: No adverse reaction ld1 Outcome: 18:16 Discharge ordered by . kdr 18:39 Discharged to home via wheelchair, with family. ld1 18:39 Condition: stable 18:39 Discharge instructions given to patient, family, Instructed on discharge instructions, follow up and referral plans. medication usage, Demonstrated understanding of instructions, follow-up care, medications, wound care, Prescriptions given X 4. 18:40 Patient left the ED. ld1 Signatures: Dispatcher [employer] EDMS Gil Veliz MD MD kdr Joann Finch am2 Bee Fischer RN RN ld1 Shawn Rick Zaina zm
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
[2022-02-15 21:46] VITALS: TEMP 98.1
[2022-02-15 21:54] VITALS: BP 184/79; O2SAT 100
--- NOTE | 2022-02-16 07:47 | EKG ---
Test Date: 2022-02-15 Test Time: 12:45:20 Plating Tank Operator: DOLLY MEASUREMENT RESULTS: Intervals: Rate: 57 VT: 150 QRSD: 76 QT: 426 QTc: 414 Mcewen: P: 34 VT: 150 QRS: 23 T: 52 INTERPRETIVE STATEMENTS: Sinus bradycardia ST abnormality, possible digitalis effect Abnormal ECG Compared to ECG 12/18/2020 14:55:47 Sinus rhythm no longer present ST (T wave) deviation still present Electronically Signed On 02-16-22 07:46:08 CDT by Emerson Ruffin
== END 2022-02-15 18:40 | disposition home or self-care (01) ==
LOC: ER 12:15
DX: S16.1XXA Strain of muscle, fascia and tendon at neck level, initial encounter (principal); M50.10 Cervical disc disorder with radiculopathy, unspecified cervical region; R10.84 Generalized abdominal pain; I11.9 Hypertensive heart disease without heart failure; I10 Essential (primary) hypertension
CPT/HCPCS: 93005; 85025; 36415; 84484; 83690; 80053; 70450; 72125; 71260; 74177; 96375; 96374; 99284; Q9967; J7040; J2405

== ENCOUNTER 2024-12-23 13:09 | Emergency (ER) | payer OTHER ==
--- NOTE | 2024-12-23 14:36 | RAD REPORT ---
EXAM: XR LEFT HAND HISTORY: Pain. PAIN COMPARISON: None TECHNIQUE: Multiple projections of the left hand submitted. FINDINGS: Iiks-du-evtwhzpy radiocarpal arthritic changes. Arthritic changes also affect the STT joint . No acute fracture or dislocation.
--- NOTE | 2024-12-23 14:37 | RAD REPORT ---
EXAMINATION: XR LEFT FOREARM CLINICAL INDICATION: PAIN TECHNIQUE: Multiple projections of the left forearm were obtained. COMPARISON: No prior exam. FINDINGS: Radiocarpal arthritic changes are present. Tiny ossific density adjacent radial styloid has a chronic appearance. No acute fracture or dislocation seen.
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
[2024-12-23 15:34] VITALS: BP 191/82; TEMP 97.9; O2SAT 98
== END 2024-12-23 14:58 | disposition home or self-care (01) ==
LOC: ER 13:09
DX: M79.642 Pain in left hand (principal); M79.632 Pain in left forearm